=== PATIENT | female | born 1970 | race Hispanic/Latino ===

== ENCOUNTER 2018-11-04 19:51 | Emergency (ER) | payer OTHER ==
[2018-11-04] MEDS ORDERED: IBUPROFEN 800 MG TAB ONE (20:10)
== END 2018-11-04 23:09 | disposition home or self-care (01) ==
LOC: EDH 19:51
DX: S93.692A Other sprain of left foot, initial encounter (principal); J45.909 Unspecified asthma, uncomplicated; E11.9 Type 2 diabetes mellitus without complications; Z98.890 Other specified postprocedural states; Z98.51 Tubal ligation status; Z88.6 Allergy status to analgesic agent; X50.0XXA Overexertion from strenuous movement or load, initial encounter; Y93.89 Activity, other specified; Y92.69 Other specified industrial and construction area as the place of occurrence of the external cause; Y99.8 Other external cause status
CPT/HCPCS: 73630; 73700

== ENCOUNTER 2018-12-17 12:35 | Emergency (ER) | payer OTHER ==
[2018-12-17 13:27] LABS: BILIRUBIN,URINE NEGATIVE (NEGATIVE); GLUCOSE, URINE (UA) >=1000 mg/dL (NEGATIVE); KETONES,URINE NEGATIVE (NEGATIVE); LEUKOCYTE ESTERASE ,URINE TRACE (NEGATIVE); NITRATE,URINE POSITIVE (NEGATIVE); OCCULT BLOOD,URINE LARGE (NEGATIVE); PH,URINE 6.5 (5.0-8.0); PROTEIN,URINE 100 mg/dL (NEGATIVE)
[2018-12-17 13:28] LABS: APPEARANCE,URINE CLOUDY (CLEAR); COLOR,URINE Red (YELLOW)
[2018-12-17 13:36] LABS: HCG,QUAL RESULT NEGATIVE (NEGATIVE)
[2018-12-17 13:38] LABS: BACTERIA,URINE Rare /HPF (None Seen); RBC,URINE TNTC /HPF (0-1); SQUAMOUS EPITHELIAL CELL,UR Rare /HPF (0-2); WBC,URINE 0-1 /HPF (0-1)
[2018-12-17 13:47] LABS: BASOPHILS % (AUTO) 1.1 % (0.0-5.0); EOSINOPHILS % (AUTO) 1.2 % (0.0-8.0); HEMATOCRIT 40.5 % (36-48); LYMPHOCYTES % (AUTO) 27.2 % (21.0-51.0); MEAN CORPUSCULAR HEMOGLOBIN 28.9 pg (27.0-33.0); MEAN CORPUSCULAR HGB CONC 33.8 g/dL (32.0-36.0); MEAN CORPUSCULAR VOLUME 85.4 fL (79-99); MONOCYTES % (AUTO) 5.1 % (3.0-13.0); NEUTROPHILS % (AUTO) 65.4 % (40.0-77.0); NUCLEATED RED BLOOD CELLS 0.2 % (0.0-0.19); PLATELET COUNT (AUTO) 229 K/uL (130-400); RED BLOOD CELL COUNT(AUTO) 4.75 MIL/uL (4.00-5.50); RED CELL DISTRIBUTION WIDTH 14.3 % (11.0-15.5); WHITE BLOOD COUNT (AUTO) 6.7 K/uL (4.8-10.8)
== END 2018-12-17 18:10 | disposition home or self-care (01) ==
LOC: EDH 12:35
DX: N95.0 Postmenopausal bleeding (principal); R93.89 Abnormal findings on diagnostic imaging of other specified body structures; I10 Essential (primary) hypertension; E11.9 Type 2 diabetes mellitus without complications; J45.909 Unspecified asthma, uncomplicated; Z88.5 Allergy status to narcotic agent; Z88.2 Allergy status to sulfonamides; Z98.51 Tubal ligation status; Z90.89 Acquired absence of other organs
CPT/HCPCS: 36415; 76856; 81001; 81025; 85025

== ENCOUNTER 2019-01-30 11:11 | Inpatient (IN) | payer OTHER | END 2019-02-01 17:25 | disposition home or self-care (01) | LOC: WSH 01-31 09:01 → DAHIP 11:11 → WSH 17:00 | PROC: 0UT90ZZ Resection of Uterus, Open Approach (ICD-10-PCS; principal; 2019-01-30 14:00) | PROC: 0UT20ZZ Resection of Bilateral Ovaries, Open Approach (ICD-10-PCS; 2019-01-30 14:00) | PROC: 0UT70ZZ Resection of Bilateral Fallopian Tubes, Open Approach (ICD-10-PCS; 2019-01-30 14:00) | DX: D25.9 Leiomyoma of uterus, unspecified (principal); N95.0 Postmenopausal bleeding ==

== ENCOUNTER 2019-10-06 16:34 | Emergency (ER) | payer OTHER ==
[~2019-10-06 16:34] MED LIST: GLIP1TAB6 PO; LISI1TAB28 PO; TRAM50TA4 PO
[2019-10-06] MEDS ORDERED: IBUPROFEN 600 MG TABLET ONE (17:10)
[2019-10-06] MEDS ORDERED: ONDANSETRON ODT 4 MG TAB ONE (17:10)
[2019-10-06] MEDS ORDERED: IPRATROPIUM/ALBUTEROL SULFATE 3 ML SOLUTION IH ONE (17:19)
[2019-10-06 17:45] LABS: RAPID GROUP A STREP NEGATIVE (NEGATIVE)
== END 2019-10-06 18:56 | disposition home or self-care (01) ==
LOC: EDH 16:34
DX: J10.1 Influenza due to other identified influenza virus with other respiratory manifestations (principal); J45.909 Unspecified asthma, uncomplicated; E11.9 Type 2 diabetes mellitus without complications; I10 Essential (primary) hypertension; Z88.6 Allergy status to analgesic agent
CPT/HCPCS: 71046; 87804; 87880; 94640

== ENCOUNTER 2019-12-12 16:09 | Emergency (ER) | payer OTHER ==
[2019-12-12] MEDS ORDERED: GUAIFENESIN SUGAR-FREE 100 MG/5 ML UDCUP ONE (16:53)
[2019-12-12] MEDS ORDERED: ACETAMINOPHEN EXTRA STRENGTH 500 MG TABLET ONE (16:54)
[2019-12-12] MEDS ORDERED: BENZONATATE 100 MG CAPSULE PO ONE (16:54)
[2019-12-12] MEDS ORDERED: METHYLPREDNISOLONE SOD SUCC 125MG/2ML VIAL ONE (16:54)
[2019-12-12] MEDS ORDERED: ONDANSETRON ODT 4 MG TAB ONE (16:55)
[2019-12-12] MEDS ORDERED: ZOSYN 3.375GM+NS 50ML 50 ML IV ONE (17:43)
[2019-12-12 17:52] LABS: BASOPHILS % (AUTO) 0.2 % (0.0-5.0); HEMATOCRIT 42.7 % (36-48); MEAN CORPUSCULAR HGB CONC 34.7 g/dL (32.0-36.0); MEAN CORPUSCULAR VOLUME 83.7 fL (79-99); MONOCYTES % (AUTO) 5.9 % (3.0-13.0); NEUTROPHILS % (AUTO) 68.7 % (40.0-77.0); PLATELET COUNT (AUTO) 136 K/uL (130-400); RED CELL DISTRIBUTION WIDTH 12.3 % (11.0-15.5); WHITE BLOOD COUNT (AUTO) 4.7 K/uL (4.8-10.8)
[2019-12-12 18:17] LABS: POTASSIUM 3.6 mmol/L (3.5-5.1)
[2019-12-12 18:22] LABS: ALBUMIN 3.4 g/dL (3.5-5.0); BILIRUBIN,TOTAL 0.6 mg/dL (0.2-1.0); TOTAL PROTEIN, SERUM 7.6 g/dL (6.0-8.3)
== END 2019-12-12 19:47 | disposition home or self-care (01) ==
LOC: EDH 16:09
DX: J18.9 Pneumonia, unspecified organism (principal); Z20.828 Contact with and (suspected) exposure to other viral communicable diseases; R11.2 Nausea with vomiting, unspecified; R19.7 Diarrhea, unspecified; I10 Essential (primary) hypertension; E11.9 Type 2 diabetes mellitus without complications; J45.909 Unspecified asthma, uncomplicated; Z88.6 Allergy status to analgesic agent; Z90.710 Acquired absence of both cervix and uterus; Z98.51 Tubal ligation status
CPT/HCPCS: 36415; 71046; 80053; 82550; 83605; 85025; 87040 ×2; 87486; 87581; 87633; 87635; 87798; 87804 ×2; 87807; 93005; 96365; 96372; 99285; J2543; J2930

== ENCOUNTER 2019-12-15 06:05 | Inpatient (IN) | payer OTHER ==
[~2019-12-15] VITALS: Ht 152.4 cm; Wt 86.8 kg
[2019-12-15] VITALS (9 sets, daily range): BP systolic 135–159; BP diastolic 49–84
[2019-12-15 07:07] LABS: BASOPHILS % (AUTO) 0.2 % (0.0-5.0); HEMATOCRIT 43.6 % (36-48); LYMPHOCYTES % (AUTO) 14.7 % (21.0-51.0); MEAN CORPUSCULAR HEMOGLOBIN 29.5 pg (27.0-33.0); MEAN CORPUSCULAR HGB CONC 35.1 g/dL (32.0-36.0); MEAN CORPUSCULAR VOLUME 84.2 fL (79-99); MONOCYTES % (AUTO) 2.8 % (3.0-13.0); NEUTROPHILS % (AUTO) 82.1 % (40.0-77.0); PLATELET COUNT (AUTO) 187 K/uL (130-400); RED BLOOD CELL COUNT(AUTO) 5.18 MIL/uL (4.00-5.50); RED CELL DISTRIBUTION WIDTH 12.5 % (11.0-15.5); WHITE BLOOD COUNT (AUTO) 9.5 K/uL (4.8-10.8)
[2019-12-15 07:22] LABS: CREATININE 0.9 mg/dL (0.5-1.5); POTASSIUM 3.5 mmol/L (3.5-5.1)
[2019-12-15] MEDS ORDERED: ZOSYN 3.375GM+NS 50ML 50 ML IV ONE (07:25)
[2019-12-15] MEDS ORDERED: ALBUTEROL INHALER 90MCG/INH IH ONE (07:25)
[2019-12-15 07:28] LABS: ALBUMIN 3.1 g/dL (3.5-5.0); BILIRUBIN,TOTAL 0.9 mg/dL (0.2-1.0); TOTAL PROTEIN, SERUM 7.1 g/dL (6.0-8.3)
[2019-12-15] MEDS ORDERED: SODIUM CHLORIDE 0.9% 1000ML 1,000 ML IV ONE ×2 (07:30→08:58)
[2019-12-15] MEDS ORDERED: VANCOMYCIN PROTOCOL PER PHARMACY IV SCH (08:30)
[2019-12-15] MEDS ORDERED: VANCOMYCIN 1GM+NS 250ML 250 ML IV ONE (08:37)
[2019-12-15] MEDS ORDERED: PHARMACY COMMUNICATION MISC SCH ×2 (13:45→14:30)
[2019-12-15] MEDS ORDERED: POTASSIUM CHLORIDE 10MEQ/100ML 100 ML IV PRN (13:45)
[2019-12-15] MEDS ORDERED: POTASSIUM CHLORIDE 20 MEQ ERTAB PO PRN (13:45)
[2019-12-15] MEDS ORDERED: AZITHROMYCIN 500MG+NS 250ML 250 ML IV ONE (14:09)
[2019-12-15] MEDS: AZITHROMYCIN 500MG+NS 250ML 250 ML IV SCH (15:00)
[2019-12-15 15:19] LABS: ABG BASE EXCESS -1.1 mmol/L (-2.0-3.0); ABG HCO3 21.3 mmol/L (21.0-28.0); ABG OXYGEN SATURATION 89.8 % (95.0-99.0); ABG PCO2 30 mmHg (32-45)
[2019-12-15] MEDS: ZOSYN 3.375GM+NS 50ML 50 ML IV SCH ×2 (15:21→22:08)
[2019-12-15] MEDS: GUAIFENESIN-DM 200/20 MG 10 ML PO SCH ×3 (15:21→22:08)
[2019-12-15] MEDS: HYDROXYCHLOROQUINE SULFATE 200 MG TAB PO SCH (15:22)
[2019-12-15] MEDS: BENZONATATE 100 MG CAPSULE PO SCH ×2 (15:22→22:08)
[2019-12-15] MEDS: ACETAMINOPHEN 325 MG TAB PO PRN (15:22)
[2019-12-15] MEDS ORDERED: COMPOUND IV REFRIGERATED 1 EACH IVSOLN MISC PRN (15:30)
[2019-12-15] MEDS ORDERED: PRED20TA3 PO (16:52)
[2019-12-15] MEDS ORDERED: AZIT250T9 PO (16:52)
[2019-12-15] MEDS ORDERED: LISI1TAB28 PO (16:52)
[2019-12-15] MEDS ORDERED: GLIP1TAB6 PO (16:52)
[2019-12-15] MEDS ORDERED: ONDA4TAB4 PO (16:52)
[2019-12-15] MEDS: IPRATROPIUM/ALBUTEROL SULFATE 3 ML SOLUTION IH SCH (18:00)
--- NOTE | 2019-12-15 19:15 | NUR ---
DR CIERA VANG AT BEDSIDE
--- NOTE | 2019-12-15 20:00 | NUR ---
ASSESSMENT PT RESTING IN BED, SOB NOTED, TACHYPNEA NOTED. PT DENIES ANY PAIN. PT AAOX3, PERRLA, ABLE TO FOLLOW COMMANDS, COOPERATIVE BUT TEARFUL, AND ANXIOUS. PT ENCOURAGED TO EXPRESS FEELINGS. PT ORIENTED TO CALLBELL, ROOM. BEDSIDE MONITOR ADJUSTED PER PT PARAMETERS. HI-FLOW O2 REMAINS INTACT. ASSESSMENT COMPLETED, PLEASE SEE FLOW SHEET.
[2019-12-15] MEDS: OSELTAMIVIR PHOSPHATE 75 MG CAP PO SCH (20:02)
[2019-12-15] MEDS: METHYLPREDNISOLONE SOD SUCC 40MG/ML 1ML IVP SCH (20:03)
[2019-12-15] MEDS: VANCOMYCIN 1.25 GM in SODIUM CHLORIDE 0.9% 250 ML IV SCH (20:03)
--- NOTE | 2019-12-15 22:00 | NUR ---
FAMILY PT DAUGHTER UZIEL CALLED. PT WAS ASLEEP. I INFORMED MISS TRIPLETT I WOULD HAVE THE PT CHARGE HER PHONE SO SHE COULD/CONTACT/SPEAK WITH HER
[2019-12-15] MEDS: INSULIN HUMULIN R 100 UNIT/ML 3ML SQ SCH (22:16)
[2019-12-16] VITALS (22 sets, daily range): BP systolic 98–153; BP diastolic 50–86
[2019-12-16] MEDS: IPRATROPIUM/ALBUTEROL SULFATE 3 ML SOLUTION IH SCH
--- NOTE | 2019-12-16 | NUR ---
ASSESSMENT PT RESTING IN BED, REMAINS SOB AND TACHYPNEIC. PT DENIES ANY PAIN. PT AROUSES EASILY, RESPONDS APPROPRIATELY, COOPERATIVE AND CALM AT PRESENT. HI-FLOW O2 REMAINS INTACT. ASSESSMENT COMPLETED, PLEASE SEE FLOW SHEET.
[2019-12-16] MEDS: HYDROXYCHLOROQUINE SULFATE 200 MG TAB PO SCH ×2 (02:00→14:00)
[2019-12-16] MEDS: GUAIFENESIN-DM 200/20 MG 10 ML PO SCH ×6 (02:01→22:49)
[2019-12-16 04:29] LABS: ABG BASE EXCESS -0.7 mmol/L (-2.0-3.0); ABG HCO3 23.7 mmol/L (21.0-28.0); ABG OXYGEN SATURATION 95.7 % (95.0-99.0); ABG PCO2 38 mmHg (32-45)
[2019-12-16] MEDS: BENZONATATE 100 MG CAPSULE PO SCH ×3 (05:33→22:50)
[2019-12-16] MEDS: ZOSYN 3.375GM+NS 50ML 50 ML IV SCH ×3 (05:34→22:50)
[2019-12-16 05:57] LABS: HEMATOCRIT 42.9 % (36-48); MEAN CORPUSCULAR HGB CONC 34.5 g/dL (32.0-36.0); MEAN CORPUSCULAR VOLUME 84.1 fL (79-99); PLATELET COUNT (AUTO) 175 K/uL (130-400); RED CELL DISTRIBUTION WIDTH 12.4 % (11.0-15.5); WHITE BLOOD COUNT (AUTO) 7.4 K/uL (4.8-10.8)
[2019-12-16] MEDS: INSULIN HUMULIN R 100 UNIT/ML 3ML SQ SCH ×4 (05:57→20:32)
[2019-12-16 06:27] LABS: ALBUMIN 2.7 g/dL (3.5-5.0); BILIRUBIN,TOTAL 0.9 mg/dL (0.2-1.0); CREATININE 0.8 mg/dL (0.5-1.5); MAGNESIUM 1.9 mg/dL (1.80-2.40); PHOSPHORUS 3.4 mg/dL (2.5-4.9); POTASSIUM 3.5 mmol/L (3.5-5.1); TOTAL PROTEIN, SERUM 6.9 g/dL (6.0-8.3)
[2019-12-16 07:06] LABS: B-TYPE NATRIURETIC PEPTIDE 36 pg/mL (0-100)
[2019-12-16] MEDS: AZITHROMYCIN 500MG+NS 250ML 250 ML IV SCH (10:08)
[2019-12-16] MEDS: VANCOMYCIN 1.25 GM in SODIUM CHLORIDE 0.9% 250 ML IV SCH ×2 (10:09→20:29)
[2019-12-16] MEDS: METHYLPREDNISOLONE SOD SUCC 40MG/ML 1ML IVP SCH ×2 (10:09→20:30)
[2019-12-16] MEDS: OSELTAMIVIR PHOSPHATE 75 MG CAP PO SCH ×2 (10:09→20:30)
[2019-12-16] MEDS: ENOXAPARIN SODIUM 40 MG/0.4 ML SYRINGE SQ SCH (10:10)
[2019-12-16] MEDS ORDERED: HYDROXYCHLOROQUINE SULFATE 200 MG TAB PO SCH ×2 (13:33→14:00)
[2019-12-16] MEDS: ACETAMINOPHEN 325 MG TAB PO PRN ×2 (14:11→23:38)
--- NOTE | 2019-12-16 15:14 | NUR ---
INITIAL SW spoke to patient. Patient lives with spouse, Abdoul Diaz, [phone]. No home services or DME. 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 She is able to complete ADL's and drives. PCP is Dr. Donavon Quinn. Pharmacy is [facility] located in [place]. DCP is home. Addendum: 12/16/19 at 1520 by MALCOLM LAWLER SS Amended: Links added.
--- NOTE | 2019-12-16 20:00 | NUR ---
ASSESSMENT PT RESTING IN BED, SOB NOTED, TACHYPNEA NOTED. PT DENIES ANY PAIN. PT AAOX3, PERRLA, ABLE TO FOLLOW COMMANDS, COOPERATIVE BUT TEARFUL, AND ANXIOUS. PT ENCOURAGED TO EXPRESS FEELINGS. PT ORIENTED TO CALLBELL, ROOM. BEDSIDE MONITOR ADJUSTED PER PT PARAMETERS. 100%% NRM INTACT. ASSESSMENT COMPLETED, PLEASE SEE FLOW SHEET.
--- NOTE | 2019-12-16 23:30 | NUR ---
ASSESSMENT PT RESTING IN BED, SOB NOTED, TACHYPNEA NOTED. PT C/O PAT COUGHING, SEE E.MAR. PT AAOX3, PERRLA, ABLE TO FOLLOW COMMANDS, COOPERATIVE BUT TEARFUL, AND ANXIOUS. PT ENCOURAGED TO EXPRESS FEELINGS. EMOTIONAL SUPPORT PROVIDED. TITRATING HI-FLOW O2 FOR SPO2, RESP AND SPO2. ASSESSMENT COMPLETED, PLEASE SEE FLOW SHEET.
[2019-12-17] VITALS (27 sets, daily range): BP systolic 87–158; BP diastolic 39–87
[2019-12-17] MEDS: GUAIFENESIN-DM 200/20 MG 10 ML PO SCH ×6 (01:30→21:23)
--- NOTE | 2019-12-17 03:00 | NUR ---
ASSESSMENT PT RESTING IN BED, SOB NOTED, TACHYPNEA NOTED. PT AROUSES EASILY AND RESPONDS APPROPRIATELY . ABLE TO FOLLOW COMMANDS, COOPERATIVE. ASSESSMENT COMPLETED, PLEASE SEE FLOW SHEET.
[2019-12-17 03:44] LABS: ABG BASE EXCESS -2.6 mmol/L (-2.0-3.0); ABG HCO3 21.4 mmol/L (21.0-28.0); ABG OXYGEN SATURATION 90.8 % (95.0-99.0); ABG PCO2 35 mmHg (32-45)
[2019-12-17 04:47] LABS: MEAN CORPUSCULAR HEMOGLOBIN 29.5 pg (27.0-33.0); MEAN CORPUSCULAR HGB CONC 34.9 g/dL (32.0-36.0); MEAN CORPUSCULAR VOLUME 84.5 fL (79-99); PLATELET COUNT (AUTO) 217 K/uL (130-400); RED BLOOD CELL COUNT(AUTO) 5.09 MIL/uL (4.00-5.50); RED CELL DISTRIBUTION WIDTH 12.4 % (11.0-15.5); WHITE BLOOD COUNT (AUTO) 11.2 K/uL (4.8-10.8)
[2019-12-17 04:59] LABS: INR 0.92 (0.85-1.15); PARTIAL THROMBOPLASTIN TIME 23.1 SEC (26.3-35.5)
[2019-12-17 05:25] LABS: ALBUMIN 2.5 g/dL (3.5-5.0); BILIRUBIN,TOTAL 1.1 mg/dL (0.2-1.0); CREATININE 1.4 mg/dL (0.5-1.5); MAGNESIUM 2.9 mg/dL (1.80-2.40); PHOSPHORUS 2.7 mg/dL (2.5-4.9); POTASSIUM 3.9 mmol/L (3.5-5.1)
[2019-12-17] MEDS: ZOSYN 3.375GM+NS 50ML 50 ML IV SCH ×3 (05:40→23:15)
[2019-12-17] MEDS: BENZONATATE 100 MG CAPSULE PO SCH ×3 (05:40→21:25)
[2019-12-17] MEDS: INSULIN HUMULIN R 100 UNIT/ML 3ML SQ SCH ×3 (05:53→17:35)
[2019-12-17] MEDS: METHYLPREDNISOLONE SOD SUCC 40MG/ML 1ML IVP SCH (09:00)
[2019-12-17] MEDS: OSELTAMIVIR PHOSPHATE 75 MG CAP PO SCH ×2 (10:59→21:23)
[2019-12-17] MEDS: ENOXAPARIN SODIUM 40 MG/0.4 ML SYRINGE SQ SCH (11:00)
[2019-12-17] MEDS: VANCOMYCIN 1.25 GM in SODIUM CHLORIDE 0.9% 250 ML IV SCH ×2 (11:02→21:24)
[2019-12-17] MEDS: AZITHROMYCIN 500MG+NS 250ML 250 ML IV SCH (11:03)
[2019-12-17] MEDS ORDERED: MIDAZOLAM HCL 1 MG/ML 2ML VIAL IVP SCH (12:50)
[2019-12-17] MEDS ORDERED: SODIUM CHLORIDE 0.9% IV STA (12:50)
[2019-12-17] MEDS ORDERED: FENTANYL CITRATE PF 50 MCG/1 ML 2ML VIAL IVP SCH ×2 (12:50→15:00)
[2019-12-17] MEDS ORDERED: ROCURONIUM BROMIDE IV STA (12:50)
[2019-12-17] MEDS ORDERED: FENTANYL CITRATE PF 0.05 MG/ML 1,000 MCG in SODIUM CHLORIDE 0.9% 100 ML IVPB STA (12:55)
[2019-12-17] MEDS ORDERED: ROCURONIUM BROMIDE 10MG/1ML 5ML VL IV SCH (13:15)
[2019-12-17] MEDS ORDERED: FENTANYL 1000MCG+NS 100ML 100 ML ONE (13:25)
--- NOTE | 2019-12-17 13:30 | NUR ---
Patient intubated by Dr Acevedo at this time. No complications. patient is sedated and tolerating ventilator well, will continue to monitor.
[2019-12-17] MEDS ORDERED: PROPOFOL 1000 MG/100 ML IV PRN (13:45)
--- NOTE | 2019-12-17 14:00 | NUR ---
The daughter who is her medical power of insurance attorney has been notified of patient's status and intubation. Daughter states understanding and we will continue to keep her updated as needed.
--- NOTE | 2019-12-17 14:55 | NUR ---
DIRECTIVES SW contacted by PAIGE Flaherty regarding pt's request for directives prior to intubation. Pt currently in isolation and SW spoke to her by phone. Pt states she wanted to have her daughter Jamila Diaz be MPOA. Sw completed forms and ATTILA Larsonissa had pt sign form and Sw witnessed thru the window. Copy was made by pt's nurse for chart and pt was given the original. CMD was present at time that MPOA was signed as well.
[2019-12-17] MEDS: HYDROXYCHLOROQUINE SULFATE 200 MG TAB PO SCH (15:10)
[2019-12-17 15:15] LABS: ABG BASE EXCESS -3.6 mmol/L (-2.0-3.0); ABG HCO3 22.7 mmol/L (21.0-28.0); ABG OXYGEN SATURATION 91.5 % (95.0-99.0); ABG PCO2 45 mmHg (32-45)
--- NOTE | 2019-12-17 15:41 | NUR ---
TUBE FEEDING RECOMMENDATIONS Dx PNA. Pt with possible COVID-19, pending results. recommending intubation, pt refused, will continue high O2 flow. Labs reviewed (BG 204, WBC 11, ALB 2.5). Meds reviewed. Skin is intact. RD recommends to start tube feeding using Pivot Start full strength at 15ml/hr Increase rate as tolerated by 5mls every 5hrs Goal rate is 30ml/hr Flush with 265mls Q6hrs Monitor residuals, labs, BM RD will continue to monitor and follow up, thank you. Addendum: 12/17/19 at [address] Amended: Links added.
[2019-12-17 16:01] LABS: INR 0.98 (0.85-1.15); PARTIAL THROMBOPLASTIN TIME 25.7 SEC (26.3-35.5); PROTHROMBIN TIME 10.6 SEC (9.6-11.6)
[2019-12-17] MEDS: ARTIFICIAL TEARS 3.5 GM OINTMENT OU SCH ×2 (17:18→21:25)
[2019-12-17] MEDS: MIDAZOLAM HCL 50 MG in SODIUM CHLORIDE 0.9% 50 ML IV SCH ×2 (17:27→20:43)
[2019-12-17] MEDS: PROPOFOL 1000 MG/100 ML 100 ML IV SCH ×2 (18:41→20:45)
[2019-12-17] MEDS: CISATRACURIUM BESYLATE 100 MG in SODIUM CHLORIDE 0.9% 100 ML IV SCH (18:54)
[2019-12-17] MEDS: FENTANYL 1000MCG+NS 100ML 100 ML IV SCH (20:00)
[2019-12-17] MEDS ORDERED: MIDAZOLAM 50MG-0.9% NS 50ML 50 ML BAG IV SCH (20:15)
[2019-12-17] MEDS: CHLORHEXIDINE GLUCONATE 473 ML MOUTHWASH MM SCH (21:24)
[2019-12-17 22:49] LABS: ABG BASE EXCESS -1.4 mmol/L (-2.0-3.0); ABG OXYGEN SATURATION 98.9 % (95.0-99.0); ABG PCO2 48 mmHg (32-45)
[2019-12-18] VITALS (44 sets, daily range): BP systolic 91–130; BP diastolic 53–69
[2019-12-18] MEDS: INSULIN HUMULIN R 100 UNIT/ML 3ML SQ SCH ×4 (00:10→18:39)
[2019-12-18] MEDS: PROPOFOL 1000 MG/100 ML 100 ML IV SCH ×4 (00:41→23:14)
[2019-12-18] MEDS: ARTIFICIAL TEARS 3.5 GM OINTMENT OU SCH ×4 (00:46→19:45)
[2019-12-18] MEDS: GUAIFENESIN-DM 200/20 MG 10 ML PO SCH ×6 (00:46→21:28)
[2019-12-18] MEDS ORDERED: PHARMACY COMMUNICATION MISC SCH (01:45)
[2019-12-18] MEDS: MIDAZOLAM 50MG-0.9% NS 50ML 50 ML IV SCH ×3 (01:53→23:13)
[2019-12-18] MEDS: FENTANYL 1000MCG+NS 100ML 100 ML IV SCH ×3 (01:53→16:17)
[2019-12-18] MEDS: BENZONATATE 100 MG CAPSULE PO SCH ×2 (03:17→12:58)
[2019-12-18 03:52] LABS: ABG BASE EXCESS -4.2 mmol/L (-2.0-3.0); ABG HCO3 24.5 mmol/L (21.0-28.0); ABG OXYGEN SATURATION 98.5 % (95.0-99.0); ABG PCO2 60 mmHg (32-45)
[2019-12-18 04:58] LABS: HEMATOCRIT 42.3 % (36-48); MEAN CORPUSCULAR HGB CONC 32.6 g/dL (32.0-36.0); MEAN CORPUSCULAR VOLUME 88.9 fL (79-99); PLATELET COUNT (AUTO) 223 K/uL (130-400); RED BLOOD CELL COUNT(AUTO) 4.76 MIL/uL (4.00-5.50); RED CELL DISTRIBUTION WIDTH 13.2 % (11.0-15.5); WHITE BLOOD COUNT (AUTO) 11.3 K/uL (4.8-10.8)
[2019-12-18 05:11] LABS: BAND NEUTROPHILS % (MANUAL) 4 % (0-2); LYMPHOCYTES % (MANUAL) 10 % (22-44); MAN.DIFF COMMENT-IMPRESSION MANUAL DIFFERENTIAL; PLATELET MORPHOLOGY COMMENT ADEQUATE; REACTIVE LYMPHOCYTES 1 % (0-0); SEGMENTED NEUTROPHILS % 85 % (40-70)
[2019-12-18 05:14] LABS: INR 0.93 (0.85-1.15); PARTIAL THROMBOPLASTIN TIME 24.9 SEC (26.3-35.5); PROTHROMBIN TIME 10.1 SEC (9.6-11.6)
[2019-12-18 05:26] LABS: ALBUMIN 2.4 g/dL (3.5-5.0); BILIRUBIN,TOTAL 0.5 mg/dL (0.2-1.0); MAGNESIUM 2.5 mg/dL (1.80-2.40); PHOSPHORUS 4.4 mg/dL (2.5-4.9); TOTAL PROTEIN, SERUM 6.7 g/dL (6.0-8.3)
[2019-12-18] MEDS: ZOSYN 3.375GM+NS 50ML 50 ML IV SCH (05:37)
[2019-12-18] MEDS: CISATRACURIUM BESYLATE 100 MG in SODIUM CHLORIDE 0.9% 100 ML IV SCH (07:16)
[2019-12-18] MEDS: INSULIN GLARGINE 100 UNITS/ML 10 ML VIAL SQ SCH ×2 (07:30→21:00)
[2019-12-18 08:08] LABS: ABG BASE EXCESS -2.5 mmol/L (-2.0-3.0); ABG HCO3 22.5 mmol/L (21.0-28.0); ABG OXYGEN SATURATION 98.5 % (95.0-99.0); ABG PCO2 40 mmHg (32-45)
[2019-12-18] MEDS: OSELTAMIVIR PHOSPHATE 75 MG CAP PO SCH ×2 (08:59→21:33)
[2019-12-18] MEDS: CHLORHEXIDINE GLUCONATE 473 ML MOUTHWASH MM SCH ×2 (09:00→21:34)
[2019-12-18] MEDS: ENOXAPARIN SODIUM 40 MG/0.4 ML SYRINGE SQ SCH (09:00)
[2019-12-18] MEDS: AZITHROMYCIN 500MG+NS 250ML 250 ML IV SCH (09:01)
[2019-12-18] MEDS: VANCOMYCIN 1.25 GM in SODIUM CHLORIDE 0.9% 250 ML IV SCH ×2 (09:01→21:34)
--- NOTE | 2019-12-18 09:51 | NUR ---
RD FOLLOW UP Pending COVID-19 results. Worsening resp. failure, S/P placement of mechanical ventilation. Labs and meds reviewed. Skin is intact. Pt started on Pivot and is tolerating well. LBM: 12/16. Increase TF rate by 5mls every 5 hrsas tolerated Goal rate is 30ml/hr TF recommendations left in pts chart Monitor residuals, labs, BM RD will continue to monitor and follow up, thank you.
[2019-12-18] MEDS ORDERED: LACTATED RINGERS 1000ML IV SCH (11:15)
[2019-12-18] MEDS: LACTATED RINGERS 1000ML 1,000 ML IV SCH (11:30)
[2019-12-18] MEDS ORDERED: LACTATED RINGERS 1000ML 1,000 ML IV SCH (12:30)
[2019-12-18] MEDS: HYDROXYCHLOROQUINE SULFATE 200 MG TAB PO SCH (13:04)
[2019-12-18] MEDS: MEROPENEM 1 GM VIAL IVP SCH ×2 (13:10→21:33)
[2019-12-18] MEDS ORDERED: NOREPINEPHRINE BITARTRATE 8 MG in DEXTROSE 5%-WATER 250 ML IV PRN (16:15)
[2019-12-18 17:44] LABS: ABG BASE EXCESS -4.5 mmol/L (-2.0-3.0); ABG HCO3 24.4 mmol/L (21.0-28.0); ABG OXYGEN SATURATION 98.1 % (95.0-99.0); ABG PCO2 61 mmHg (32-45)
[2019-12-19] VITALS (44 sets, daily range): BP systolic 86–163; BP diastolic 46–81
[2019-12-19 00:13] LABS: ABG BASE EXCESS -1.7 mmol/L (-2.0-3.0); ABG HCO3 26.4 mmol/L (21.0-28.0); ABG OXYGEN SATURATION 97.4 % (95.0-99.0); ABG PCO2 58 mmHg (32-45)
[2019-12-19] MEDS: ARTIFICIAL TEARS 3.5 GM OINTMENT OU SCH ×4 (00:36→21:40)
[2019-12-19] MEDS: LACTATED RINGERS 1000ML 1,000 ML IV SCH (00:36)
[2019-12-19] MEDS: GUAIFENESIN-DM 200/20 MG 10 ML PO SCH ×6 (00:41→21:33)
[2019-12-19] MEDS: CISATRACURIUM BESYLATE 100 MG in SODIUM CHLORIDE 0.9% 100 ML IV SCH ×2 (01:04→17:43)
[2019-12-19] MEDS: PROPOFOL 1000 MG/100 ML 100 ML IV SCH ×4 (03:21→23:57)
[2019-12-19] MEDS: MEROPENEM 1 GM VIAL IVP SCH ×3 (03:41→21:32)
[2019-12-19] MEDS: ACETAMINOPHEN 325 MG TAB PO PRN ×2 (03:42→18:17)
[2019-12-19 04:43] LABS: ABG BASE EXCESS 0.2 mmol/L (-2.0-3.0); ABG HCO3 26.7 mmol/L (21.0-28.0); ABG OXYGEN SATURATION 97.9 % (95.0-99.0); ABG PCO2 50 mmHg (32-45)
[2019-12-19 06:02] LABS: HEMATOCRIT 35.4 % (36-48); MEAN CORPUSCULAR HEMOGLOBIN 30.1 pg (27.0-33.0); MEAN CORPUSCULAR HGB CONC 32.8 g/dL (32.0-36.0); MEAN CORPUSCULAR VOLUME 91.9 fL (79-99); PLATELET COUNT (AUTO) 143 K/uL (130-400); RED BLOOD CELL COUNT(AUTO) 3.85 MIL/uL (4.00-5.50); RED CELL DISTRIBUTION WIDTH 13.4 % (11.0-15.5); WHITE BLOOD COUNT (AUTO) 9.5 K/uL (4.8-10.8)
[2019-12-19 06:28] LABS: ALBUMIN 1.7 g/dL (3.5-5.0); BILIRUBIN,TOTAL 0.5 mg/dL (0.2-1.0); CREATININE 1.1 mg/dL (0.5-1.5); PHOSPHORUS 2.8 mg/dL (2.5-4.9); TOTAL PROTEIN, SERUM 5.9 g/dL (6.0-8.3)
[2019-12-19] MEDS: INSULIN HUMULIN R 100 UNIT/ML 3ML SQ SCH ×4 (06:30→18:25)
[2019-12-19 06:57] LABS: EOSINOPHILS % (MANUAL) 1 % (1-6); LYMPHOCYTES % (MANUAL) 6 % (22-44); MAN.DIFF COMMENT-IMPRESSION MANUAL DIFFERENTIAL; MONOCYTES % (MANUAL) 5 % (2-9); PLATELET MORPHOLOGY COMMENT ADEQUATE; SEGMENTED NEUTROPHILS % 88 % (40-70)
[2019-12-19] MEDS: INSULIN GLARGINE 100 UNITS/ML 10 ML VIAL SQ SCH ×2 (08:07→21:36)
[2019-12-19] MEDS: AZITHROMYCIN 500MG+NS 250ML 250 ML IV SCH (08:21)
[2019-12-19] MEDS: VANCOMYCIN 1.25 GM in SODIUM CHLORIDE 0.9% 250 ML IV SCH ×2 (08:24→21:33)
[2019-12-19] MEDS: OSELTAMIVIR PHOSPHATE 75 MG CAP PO SCH ×2 (08:25→21:33)
[2019-12-19] MEDS: ENOXAPARIN SODIUM 40 MG/0.4 ML SYRINGE SQ SCH (08:27)
--- NOTE | 2019-12-19 09:00 | NUR ---
TOF 12/27
[2019-12-19] MEDS: CHLORHEXIDINE GLUCONATE 473 ML MOUTHWASH MM SCH ×2 (09:55→21:40)
--- NOTE | 2019-12-19 10:22 | NUR ---
UPDATED FAMILY MICHELE ON PTS CONDITION
--- NOTE | 2019-12-19 11:30 | NUR ---
UPDATED UZIEL ON PTS STATUS
--- NOTE | 2019-12-19 11:30 | NUR ---
TOF 12/27
[2019-12-19] MEDS: HYDROXYCHLOROQUINE SULFATE 200 MG TAB PO SCH (13:00)
[2019-12-19] MEDS ORDERED: FUROSEMIDE 10 MG/ML 4ML VIAL IV SCH (13:00)
[2019-12-19] MEDS: FENTANYL 1000MCG+NS 100ML 100 ML IV SCH ×2 (13:54→23:56)
--- NOTE | 2019-12-19 14:00 | NUR ---
TOF 12/27
--- NOTE | 2019-12-19 14:47 | NUR ---
NEW COVID TESTING PERFORMED ON PT
--- NOTE | 2019-12-19 16:00 | NUR ---
TOF 12/27
[2019-12-19] MEDS: MIDAZOLAM 50MG-0.9% NS 50ML 50 ML IV SCH (17:43)
--- NOTE | 2019-12-19 18:00 | NUR ---
TOF 12/27
--- NOTE | 2019-12-19 19:00 | NUR ---
CALLED FOR UPDATE
--- NOTE | 2019-12-19 20:00 | NUR ---
TOF4/4
[2019-12-20] VITALS (24 sets, daily range): BP systolic 93–159; BP diastolic 52–79
--- NOTE | 2019-12-20 | NUR ---
TOF 3/4
[2019-12-20] MEDS: INSULIN HUMULIN R 100 UNIT/ML 3ML SQ SCH ×4 (00:29→18:51)
[2019-12-20] MEDS: IPRATROPIUM/ALBUTEROL SULFATE 3 ML SOLUTION IH SCH ×2 (00:47→18:00)
[2019-12-20] MEDS: ARTIFICIAL TEARS 3.5 GM OINTMENT OU SCH ×4 (01:45→16:57)
[2019-12-20] MEDS: GUAIFENESIN-DM 200/20 MG 10 ML PO SCH ×6 (01:45→21:45)
--- NOTE | 2019-12-20 04:00 | NUR ---
Tof 2/4
[2019-12-20] MEDS: MEROPENEM 1 GM VIAL IVP SCH ×3 (05:56→20:13)
[2019-12-20] MEDS: INSULIN GLARGINE 100 UNITS/ML 10 ML VIAL SQ SCH ×2 (06:52→22:03)
[2019-12-20 06:58] LABS: HEMATOCRIT 32.3 % (36-48); MEAN CORPUSCULAR HEMOGLOBIN 30.9 pg (27.0-33.0); MEAN CORPUSCULAR HGB CONC 34.1 g/dL (32.0-36.0); MEAN CORPUSCULAR VOLUME 90.7 fL (79-99); PLATELET COUNT (AUTO) 141 K/uL (130-400); RED BLOOD CELL COUNT(AUTO) 3.56 MIL/uL (4.00-5.50); RED CELL DISTRIBUTION WIDTH 13.3 % (11.0-15.5); WHITE BLOOD COUNT (AUTO) 10.5 K/uL (4.8-10.8)
[2019-12-20 07:15] LABS: ABG BASE EXCESS 1.1 mmol/L (-2.0-3.0); ABG HCO3 26.5 mmol/L (21.0-28.0); ABG OXYGEN SATURATION 97.4 % (95.0-99.0); ABG PCO2 45 mmHg (32-45)
[2019-12-20] MEDS: CISATRACURIUM BESYLATE 100 MG in SODIUM CHLORIDE 0.9% 100 ML IV SCH (07:19)
[2019-12-20 07:35] LABS: CREATININE 1.1 mg/dL (0.5-1.5); MAGNESIUM 2.2 mg/dL (1.80-2.40); PHOSPHORUS 2.3 mg/dL (2.5-4.9); POTASSIUM 3.8 mmol/L (3.5-5.1)
[2019-12-20] MEDS: AZITHROMYCIN 500MG+NS 250ML 250 ML IV SCH (08:12)
[2019-12-20] MEDS: ENOXAPARIN SODIUM 40 MG/0.4 ML SYRINGE SQ SCH (08:14)
[2019-12-20] MEDS: OSELTAMIVIR PHOSPHATE 75 MG CAP PO SCH (08:14)
[2019-12-20] MEDS: CHLORHEXIDINE GLUCONATE 473 ML MOUTHWASH MM SCH ×2 (08:18→21:54)
[2019-12-20] MEDS: VANCOMYCIN 1.25 GM in SODIUM CHLORIDE 0.9% 250 ML IV SCH ×2 (09:44→20:15)
[2019-12-20] MEDS: MIDAZOLAM 50MG-0.9% NS 50ML 50 ML IV SCH ×2 (11:31→20:21)
[2019-12-20] MEDS: FENTANYL 1000MCG+NS 100ML 100 ML IV SCH ×2 (11:32→20:21)
--- NOTE | 2019-12-20 13:54 | NUR ---
RD FOLLOW UP Pending COVID-19 results. Labs and meds reviewed. Pt is tolerating TF at this time. MD request trickle feeds at this time. Intubated and sedated. Skin intact. RD recommends to continue current TF recommendations Increase rate as tolerated when medically feasible Monitor residuals, labs, BM RD will continue to monitor and follow up, thank you.
[2019-12-20] MEDS: ACETAMINOPHEN 325 MG TAB PO PRN (16:54)
--- NOTE | 2019-12-20 20:00 | NUR ---
tof 2/4
[2019-12-20] MEDS: POLYETHYLENE GLYCOL 3350 17 GM POWD.PACK PO SCH (21:00)
[2019-12-21] VITALS (33 sets, daily range): BP systolic 106–180; BP diastolic 65–115
[2019-12-21] MEDS: IPRATROPIUM/ALBUTEROL SULFATE 3 ML SOLUTION IH SCH
--- NOTE | 2019-12-21 | NUR ---
tof 3/4
[2019-12-21] MEDS: INSULIN HUMULIN R 100 UNIT/ML 3ML SQ SCH ×4 (00:22→18:00)
[2019-12-21] MEDS: CISATRACURIUM BESYLATE 100 MG in SODIUM CHLORIDE 0.9% 100 ML IV SCH ×3 (00:24→21:59)
[2019-12-21] MEDS: GUAIFENESIN-DM 200/20 MG 10 ML PO SCH ×6 (01:45→21:58)
[2019-12-21] MEDS: ARTIFICIAL TEARS 3.5 GM OINTMENT OU SCH ×4 (03:12→18:13)
[2019-12-21] MEDS: MEROPENEM 1 GM VIAL IVP SCH ×3 (03:49→20:25)
[2019-12-21] MEDS: MIDAZOLAM 50MG-0.9% NS 50ML 50 ML IV SCH ×3 (05:08→22:00)
[2019-12-21] MEDS: FENTANYL 1000MCG+NS 100ML 100 ML IV SCH ×3 (05:08→22:00)
[2019-12-21 05:21] LABS: HEMATOCRIT 36.1 % (36-48); MEAN CORPUSCULAR HGB CONC 32.7 g/dL (32.0-36.0); MEAN CORPUSCULAR VOLUME 88.7 fL (79-99); PLATELET COUNT (AUTO) 171 K/uL (130-400); RED BLOOD CELL COUNT(AUTO) 4.07 MIL/uL (4.00-5.50); WHITE BLOOD COUNT (AUTO) 10.1 K/uL (4.8-10.8)
[2019-12-21 05:44] LABS: CREATININE 0.8 mg/dL (0.5-1.5); MAGNESIUM 2.2 mg/dL (1.80-2.40); PHOSPHORUS 2.1 mg/dL (2.5-4.9); POTASSIUM 3.9 mmol/L (3.5-5.1)
--- NOTE | 2019-12-21 06:13 | NUR ---
tof 2/4. here and updated with patient condition,V/S and lab results,patient is positive for Covid 19.No new order.Patient hemodynamically stable,has been off pressor since start of my shift.No desaturation noted upon repositioning.Oral care and endotracheal care rendered.Family has been updated.
[2019-12-21] MEDS: INSULIN GLARGINE 100 UNITS/ML 10 ML VIAL SQ SCH ×2 (06:47→20:28)
[2019-12-21] MEDS: AZITHROMYCIN 500MG+NS 250ML 250 ML IV SCH (08:24)
[2019-12-21] MEDS: VANCOMYCIN 1.25 GM in SODIUM CHLORIDE 0.9% 250 ML IV SCH ×2 (08:25→20:26)
[2019-12-21] MEDS: ENOXAPARIN SODIUM 40 MG/0.4 ML SYRINGE SQ SCH (08:28)
[2019-12-21] MEDS: CHLORHEXIDINE GLUCONATE 473 ML MOUTHWASH MM SCH ×2 (08:29→20:31)
[2019-12-21] MEDS: POLYETHYLENE GLYCOL 3350 17 GM POWD.PACK PO SCH ×2 (08:33→20:26)
[2019-12-21 09:58] LABS: ABG BASE EXCESS 0.9 mmol/L (-2.0-3.0); ABG HCO3 26.3 mmol/L (21.0-28.0); ABG OXYGEN SATURATION 91.8 % (95.0-99.0); ABG PCO2 45 mmHg (32-45)
[2019-12-21] MEDS ORDERED: NEUTRA-PHOS PACKET 1 EACH ONE (12:33)
[2019-12-21] MEDS: NEUTRA-PHOS PACKET 1 EACH PO SCH ×2 (12:36→20:30)
[2019-12-21] MEDS ORDERED: PHARMACY COMMUNICATION MISC SCH (13:30)
[2019-12-21] MEDS: FUROSEMIDE 10 MG/ML 2ML VIAL IV SCH ×2 (14:43→22:54)
[2019-12-22] VITALS (36 sets, daily range): BP systolic 105–181; BP diastolic 66–105
[2019-12-22] MEDS: INSULIN HUMULIN R 100 UNIT/ML 3ML SQ SCH ×5 (01:30→23:36)
[2019-12-22] MEDS: ARTIFICIAL TEARS 3.5 GM OINTMENT OU SCH ×4 (01:31→21:33)
[2019-12-22] MEDS: GUAIFENESIN-DM 200/20 MG 10 ML PO SCH ×6 (01:31→21:36)
[2019-12-22] MEDS: MEROPENEM 1 GM VIAL IVP SCH ×3 (04:08→21:32)
[2019-12-22] MEDS: FENTANYL 1000MCG+NS 100ML 100 ML IV SCH ×3 (05:47→21:40)
[2019-12-22] MEDS: MIDAZOLAM 50MG-0.9% NS 50ML 50 ML IV SCH ×3 (05:47→21:40)
[2019-12-22] MEDS: CISATRACURIUM BESYLATE 100 MG in SODIUM CHLORIDE 0.9% 100 ML IV SCH ×3 (05:48→21:41)
[2019-12-22 06:35] LABS: HEMATOCRIT 33.7 % (36-48); MEAN CORPUSCULAR HEMOGLOBIN 29.8 pg (27.0-33.0); MEAN CORPUSCULAR HGB CONC 33.5 g/dL (32.0-36.0); MEAN CORPUSCULAR VOLUME 88.9 fL (79-99); PLATELET COUNT (AUTO) 165 K/uL (130-400); RED BLOOD CELL COUNT(AUTO) 3.79 MIL/uL (4.00-5.50); RED CELL DISTRIBUTION WIDTH 13.1 % (11.0-15.5); WHITE BLOOD COUNT (AUTO) 8.6 K/uL (4.8-10.8)
[2019-12-22] MEDS: FUROSEMIDE 10 MG/ML 2ML VIAL IV SCH ×2 (06:44→11:55)
[2019-12-22] MEDS: INSULIN GLARGINE 100 UNITS/ML 10 ML VIAL SQ SCH ×3 (06:46→21:48)
[2019-12-22 06:50] LABS: CREATININE 0.8 mg/dL (0.5-1.5); MAGNESIUM 1.9 mg/dL (1.80-2.40); PHOSPHORUS 2.5 mg/dL (2.5-4.9); POTASSIUM 3.2 mmol/L (3.5-5.1)
[2019-12-22] MEDS ORDERED: CALCIUM GLUCONATE 1 GM in SODIUM CHLORIDE 0.9% 50 ML IV SCH (07:45)
[2019-12-22] MEDS ORDERED: CALCIUM GLUCONATE 1 GM/10 ML VIAL IV ONE (08:00)
[2019-12-22] MEDS: POTASSIUM CHLORIDE 10% ELIXIR 20 MEQ/15 ML UDCUP PO PRN ×5 (08:22→23:33)
[2019-12-22] MEDS: AZITHROMYCIN 500MG+NS 250ML 250 ML IV SCH (08:23)
[2019-12-22] MEDS: POLYETHYLENE GLYCOL 3350 17 GM POWD.PACK PO SCH ×2 (08:23→21:34)
[2019-12-22] MEDS: NEUTRA-PHOS PACKET 1 EACH PO SCH ×3 (08:27→21:35)
[2019-12-22] MEDS: VANCOMYCIN 1.25 GM in SODIUM CHLORIDE 0.9% 250 ML IV SCH ×2 (08:38→21:34)
[2019-12-22] MEDS: CHLORHEXIDINE GLUCONATE 473 ML MOUTHWASH MM SCH ×2 (08:39→21:34)
[2019-12-22] MEDS: ENOXAPARIN SODIUM 40 MG/0.4 ML SYRINGE SQ SCH (08:41)
[2019-12-22 09:41] LABS: ABG BASE EXCESS 6.5 mmol/L (-2.0-3.0); ABG HCO3 30.6 mmol/L (21.0-28.0); ABG OXYGEN SATURATION 92.6 % (95.0-99.0); ABG PCO2 42 mmHg (32-45)
[2019-12-22] MEDS: FUROSEMIDE 10 MG/ML 4ML VIAL IV SCH (16:59)
[2019-12-22 17:38] LABS: CREATININE 0.8 mg/dL (0.5-1.5); POTASSIUM 3.6 mmol/L (3.5-5.1)
[2019-12-22] MEDS: MAGNESIUM 2GM PREMIX 50ML 50 ML IV PRN (21:40)
[2019-12-23] VITALS (47 sets, daily range): BP systolic 104–168; BP diastolic 65–94
[2019-12-23] MEDS: GUAIFENESIN-DM 200/20 MG 10 ML PO SCH ×6 (01:23→22:23)
[2019-12-23] MEDS: FUROSEMIDE 10 MG/ML 4ML VIAL IV SCH ×3 (01:24→17:29)
[2019-12-23] MEDS: ARTIFICIAL TEARS 3.5 GM OINTMENT OU SCH ×4 (01:24→19:45)
[2019-12-23] MEDS: MEROPENEM 1 GM VIAL IVP SCH ×3 (04:56→20:35)
[2019-12-23] MEDS: FENTANYL 1000MCG+NS 100ML 100 ML IV SCH ×3 (05:03→22:34)
[2019-12-23] MEDS: MIDAZOLAM 50MG-0.9% NS 50ML 50 ML IV SCH ×3 (05:03→22:33)
[2019-12-23 06:26] LABS: HEMATOCRIT 36.2 % (36-48); MEAN CORPUSCULAR HEMOGLOBIN 29.2 pg (27.0-33.0); MEAN CORPUSCULAR HGB CONC 32.9 g/dL (32.0-36.0); MEAN CORPUSCULAR VOLUME 88.9 fL (79-99); PLATELET COUNT (AUTO) 198 K/uL (130-400); RED BLOOD CELL COUNT(AUTO) 4.07 MIL/uL (4.00-5.50); RED CELL DISTRIBUTION WIDTH 13.1 % (11.0-15.5); WHITE BLOOD COUNT (AUTO) 8.1 K/uL (4.8-10.8)
[2019-12-23 06:41] LABS: CREATININE 0.8 mg/dL (0.5-1.5); MAGNESIUM 2.5 mg/dL (1.80-2.40); PHOSPHORUS 3.2 mg/dL (2.5-4.9)
[2019-12-23 06:48] LABS: POTASSIUM 3.9 mmol/L (3.5-5.1)
[2019-12-23 07:26] LABS: ABG BASE EXCESS 7.3 mmol/L (-2.0-3.0); ABG HCO3 31.5 mmol/L (21.0-28.0); ABG OXYGEN SATURATION 94.8 % (95.0-99.0); ABG PCO2 43 mmHg (32-45)
[2019-12-23] MEDS: INSULIN GLARGINE 100 UNITS/ML 10 ML VIAL SQ SCH (07:45)
[2019-12-23] MEDS: INSULIN HUMULIN R 100 UNIT/ML 3ML SQ SCH ×3 (07:46→17:47)
--- NOTE | 2019-12-23 08:00 | NUR ---
TOF 4 OF 4
[2019-12-23] MEDS: AZITHROMYCIN 500MG+NS 250ML 250 ML IV SCH (08:44)
[2019-12-23] MEDS: CHLORHEXIDINE GLUCONATE 473 ML MOUTHWASH MM SCH ×2 (08:45→21:00)
[2019-12-23] MEDS: VANCOMYCIN 1.25 GM in SODIUM CHLORIDE 0.9% 250 ML IV SCH (08:45)
[2019-12-23] MEDS: POLYETHYLENE GLYCOL 3350 17 GM POWD.PACK PO SCH ×2 (08:46→22:19)
[2019-12-23] MEDS: ENOXAPARIN SODIUM 40 MG/0.4 ML SYRINGE SQ SCH (08:47)
[2019-12-23] MEDS: NEUTRA-PHOS PACKET 1 EACH PO SCH ×3 (08:49→22:23)
[2019-12-23] MEDS ORDERED: CALCIUM GLUCONATE 1 GM/10 ML VIAL IV ONE (09:00)
[2019-12-23] MEDS ORDERED: CALCIUM GLUCONATE 1 GM in SODIUM CHLORIDE 0.9% 50 ML IV SCH (09:15)
[2019-12-23] MEDS: CISATRACURIUM BESYLATE 100 MG in SODIUM CHLORIDE 0.9% 100 ML IV SCH ×2 (10:37→19:16)
--- NOTE | 2019-12-23 10:56 | NUR ---
RD FOLLOW UP Positive for COVID. Pt receiving tube feeding using Pivot at 20ml/hr. Tolerating well. Vented and sedated at this time. No BM recorded. Labs and meds reviewed. RD recommends Reglan administration for BM Recommend 500mg Vitamin C BID for immune support Continue Pivot trickle feeds Increase rate as tolerated to goal rate RD will continue to monitor and follow up, thank you.
--- NOTE | 2019-12-23 13:20 | NUR ---
DR SHANNON SHARMA AT BEDSIDE TO ASSESS PATIENT
[2019-12-23] MEDS ORDERED: INSULIN GLARGINE 100 UNITS/ML 10 ML VIAL SQ SCH (21:00)
[2019-12-23 21:08] LABS: POTASSIUM 3.5 mmol/L (3.5-5.1)
[2019-12-23] MEDS: POTASSIUM CHLORIDE 20MEQ/100ML 100 ML IV PRN (22:32)
[2019-12-24] VITALS (71 sets, daily range): BP systolic 105–223; BP diastolic 58–120
[2019-12-24] MEDS: INSULIN HUMULIN R 100 UNIT/ML 3ML SQ SCH ×4 (00:49→17:38)
[2019-12-24] MEDS: VANCOMYCIN 1.25 GM in SODIUM CHLORIDE 0.9% 250 ML IV SCH ×3 (01:00→20:34)
[2019-12-24] MEDS: FUROSEMIDE 10 MG/ML 4ML VIAL IV SCH ×3 (01:00→17:01)
[2019-12-24] MEDS: ARTIFICIAL TEARS 3.5 GM OINTMENT OU SCH ×4 (01:01→19:45)
[2019-12-24] MEDS: GUAIFENESIN-DM 200/20 MG 10 ML PO SCH ×6 (01:01→20:35)
[2019-12-24] MEDS: MEROPENEM 1 GM VIAL IVP SCH ×3 (03:21→20:34)
[2019-12-24] MEDS: CISATRACURIUM BESYLATE 100 MG in SODIUM CHLORIDE 0.9% 100 ML IV SCH ×3 (03:24→22:23)
[2019-12-24 06:43] LABS: HEMATOCRIT 37.1 % (36-48); MEAN CORPUSCULAR HEMOGLOBIN 29.5 pg (27.0-33.0); MEAN CORPUSCULAR HGB CONC 32.9 g/dL (32.0-36.0); MEAN CORPUSCULAR VOLUME 89.8 fL (79-99); PLATELET COUNT (AUTO) 232 K/uL (130-400); RED BLOOD CELL COUNT(AUTO) 4.13 MIL/uL (4.00-5.50); RED CELL DISTRIBUTION WIDTH 13.2 % (11.0-15.5); WHITE BLOOD COUNT (AUTO) 9.3 K/uL (4.8-10.8)
[2019-12-24 06:46] LABS: CREATININE 0.9 mg/dL (0.5-1.5); PHOSPHORUS 3.5 mg/dL (2.5-4.9); POTASSIUM 3.7 mmol/L (3.5-5.1)
[2019-12-24] MEDS: FENTANYL 1000MCG+NS 100ML 100 ML IV SCH ×2 (07:27→18:05)
[2019-12-24] MEDS: AZITHROMYCIN 500MG+NS 250ML 250 ML IV SCH (08:25)
[2019-12-24] MEDS: CHLORHEXIDINE GLUCONATE 473 ML MOUTHWASH MM SCH ×2 (08:25→20:38)
[2019-12-24] MEDS: NEUTRA-PHOS PACKET 1 EACH PO SCH ×3 (08:26→20:35)
[2019-12-24] MEDS: POLYETHYLENE GLYCOL 3350 17 GM POWD.PACK PO SCH ×2 (08:26→20:35)
[2019-12-24] MEDS: ENOXAPARIN SODIUM 40 MG/0.4 ML SYRINGE SQ SCH (08:27)
[2019-12-24] MEDS: INSULIN GLARGINE 100 UNITS/ML 10 ML VIAL SQ SCH ×2 (08:28→20:37)
[2019-12-24] MEDS: POTASSIUM CHLORIDE 20MEQ/100ML 100 ML IV PRN (08:30)
[2019-12-24] MEDS: MIDAZOLAM 50MG-0.9% NS 50ML 50 ML IV SCH ×3 (08:58→21:54)
[2019-12-24 08:59] LABS: ABG BASE EXCESS 9.3 mmol/L (-2.0-3.0); ABG HCO3 33.2 mmol/L (21.0-28.0); ABG OXYGEN SATURATION 96.9 % (95.0-99.0); ABG PCO2 42 mmHg (32-45)
[2019-12-24] MEDS ORDERED: INSULIN GLARGINE 100 UNITS/ML 10 ML VIAL SQ SCH ×2 (09:00)
--- NOTE | 2019-12-24 12:30 | NUR ---
DR ORTEGA AT BEDSIDE, DISCONTINUED NIMBEX DRIP, ORDERED PER MD, AND CHANGED PEEP TO 7, ABG'S TO BE DRAWN IN 2 HOURS
--- NOTE | 2019-12-24 14:00 | NUR ---
NOTED WITH B/P 191/98 HR 100-110, NOTED TO BE USING ACCESSORY MUSCLES, O2 SATS AT 86-89, DR SHANNON SHARMA MADE AWARE, NEW ORDERS GIVEN TO RESTART NIMBEX DRIP AT THIS TIME.
--- NOTE | 2019-12-24 14:06 | NUR ---
UNLABORED RESPIRATIONS NOTED, NIMBEX INFUSING AT 2.49 MCG/KG/MIN, RESPIRATIONS 27, B/P 162/77, HR 105, O2 SAT AT 100%
[2019-12-24 14:59] LABS: ABG HCO3 32.9 mmol/L (21.0-28.0); ABG OXYGEN SATURATION 91.1 % (95.0-99.0); ABG PCO2 46 mmHg (32-45)
--- NOTE | 2019-12-24 15:20 | NUR ---
DR SHANNON SHARMA UPDATED WITH LATEST ABG RESULTS: PH 7.471, PCO2 46.1, HCO3 32.9, PO2 57.0, NEW ORDERS GIVEN TO CHANGE PEEP BACK TO 12
--- NOTE | 2019-12-24 16:45 | NUR ---
REMAINS WITH UNLABORED RESPIRATIONS, TOF 4 OF 4, B/P 140/81, SR 98, RESP 27, O2 SAT AT 100%
[2019-12-24] MEDS: HYDRALAZINE HCL 20 MG/ML VIAL IV PRN (17:31)
[2019-12-24] MEDS ORDERED: NICARDIPINE HCL 25 MG in SODIUM CHLORIDE 0.9% 240 ML IV SCH (18:15)
--- NOTE | 2019-12-24 18:15 | NUR ---
BLOOD PRESSURE NOTED AT 223/115, HR 129-134, O2 SAT AT 99% RESP 27, REMAINS VENTED, DR SHANNON SHARMA NOTIFIED VIA PHONE, NEW ORDERS GIVEN TO INITIATE CARDENE DRIP.
[2019-12-24] MEDS: NICARDIPINE 100 MG/100ML IV SCH ×2 (18:28)
--- NOTE | 2019-12-24 18:30 | NUR ---
CARDENE DRIP INITIATED AT THIS TIME 5MG/HR, DOSE INITIATION WITNESSED PER MELISA RAMIREZ RN
--- NOTE | 2019-12-24 18:57 | NUR ---
REMAINS WITH CARDENE DRIP AT 15MG/HR, CURRENT SBP 187/, HR 131
--- NOTE | 2019-12-24 21:00 | NUR ---
Assumed care of patient after report received from Rich DOTY at shift change. Heartrate up to 140. Titrating Fentanyl and Versed drips. Noted patient had a large, loose, normal colored BM. Malathi care and partial linen change. Cooling blanket on monitor mode, assured rectal probe in proper place. Checked against auxillary temp.
[2019-12-24 21:22] LABS: MAGNESIUM 1.9 mg/dL (1.80-2.40); POTASSIUM 3.9 mmol/L (3.5-5.1)
[2019-12-25] VITALS (73 sets, daily range): BP systolic 98–168; BP diastolic 52–93
--- NOTE | 2019-12-25 00:06 | NUR ---
Weaning Cardene drip, Fentanyl, and Versed drips. Magnesium level 1.9. Coverage in progress. Glucometer 317, covered with Regular Insulin sliding scale.
[2019-12-25] MEDS: MAGNESIUM 2GM PREMIX 50ML 50 ML IV PRN (01:06)
[2019-12-25] MEDS: INSULIN HUMULIN R 100 UNIT/ML 3ML SQ SCH ×5 (01:10→23:56)
[2019-12-25] MEDS: ARTIFICIAL TEARS 3.5 GM OINTMENT OU SCH ×5 (01:18→23:55)
[2019-12-25] MEDS: GUAIFENESIN-DM 200/20 MG 10 ML PO SCH ×7 (01:19→23:55)
[2019-12-25] MEDS: FENTANYL 1000MCG+NS 100ML 100 ML IV SCH ×3 (02:08→18:32)
[2019-12-25] MEDS: FUROSEMIDE 10 MG/ML 4ML VIAL IV SCH ×4 (02:51→23:52)
[2019-12-25] MEDS: MEROPENEM 1 GM VIAL IVP SCH ×3 (02:52→20:55)
[2019-12-25 05:28] LABS: HEMATOCRIT 35.4 % (36-48); MEAN CORPUSCULAR HEMOGLOBIN 29.4 pg (27.0-33.0); MEAN CORPUSCULAR HGB CONC 32.8 g/dL (32.0-36.0); MEAN CORPUSCULAR VOLUME 89.8 fL (79-99); PLATELET COUNT (AUTO) 230 K/uL (130-400); RED BLOOD CELL COUNT(AUTO) 3.94 MIL/uL (4.00-5.50); WHITE BLOOD COUNT (AUTO) 10.4 K/uL (4.8-10.8)
[2019-12-25] MEDS: HYDRALAZINE HCL 20 MG/ML VIAL IV PRN (07:52)
[2019-12-25] MEDS: MIDAZOLAM 50MG-0.9% NS 50ML 50 ML IV SCH ×2 (07:52→16:51)
[2019-12-25] MEDS: VANCOMYCIN 1.25 GM in SODIUM CHLORIDE 0.9% 250 ML IV SCH (08:40)
[2019-12-25] MEDS: POLYETHYLENE GLYCOL 3350 17 GM POWD.PACK PO SCH ×2 (08:41→20:58)
[2019-12-25] MEDS: CHLORHEXIDINE GLUCONATE 473 ML MOUTHWASH MM SCH ×2 (08:41→20:58)
[2019-12-25] MEDS: ENOXAPARIN SODIUM 40 MG/0.4 ML SYRINGE SQ SCH (08:42)
[2019-12-25] MEDS: NEUTRA-PHOS PACKET 1 EACH PO SCH ×3 (08:42→20:56)
[2019-12-25] MEDS: INSULIN GLARGINE 100 UNITS/ML 10 ML VIAL SQ SCH ×2 (08:45→21:00)
[2019-12-25] MEDS: CISATRACURIUM BESYLATE 100 MG in SODIUM CHLORIDE 0.9% 100 ML IV SCH ×3 (08:50→21:00)
--- NOTE | 2019-12-25 09:55 | NUR ---
RECTAL TEMP NOTED AT 94.9 F, PLACED MICHAEL HUGGER AT 43 C, SR 89, 02 SAT AT 99, NO RESPIRATORY DISTRESS NOTED, B/P 131/70, RESP 27
[2019-12-25] MEDS ORDERED: VASOPRESSIN 20 UNITS in SODIUM CHLORIDE 0.9% 100 ML IV SCH (14:00)
--- NOTE | 2019-12-25 16:56 | NUR ---
RD FOLLOW UP NOTE Recommend to continue trickle feeds as medically feasible. Pt with dehydration status, Recommend to increase flushes 125mL EVERY 4 HOURS. Monitored labs: CO2 35, BUN 35, BG 276, Alb 1.7. RD to follow up. Addendum: 12/25/19 at [address] Amended: Links added.
[2019-12-26] VITALS (75 sets, daily range): BP systolic 88–178; BP diastolic 47–95
[2019-12-26] MEDS: FENTANYL 1000MCG+NS 100ML 100 ML IV SCH ×4 (02:03→18:22)
[2019-12-26] MEDS: MIDAZOLAM 50MG-0.9% NS 50ML 50 ML IV SCH ×4 (02:03→22:17)
[2019-12-26] MEDS: MEROPENEM 1 GM VIAL IVP SCH ×3 (02:03→22:11)
[2019-12-26] MEDS: INSULIN HUMULIN R 100 UNIT/ML 3ML SQ SCH ×4 (05:55→23:37)
[2019-12-26] MEDS: GUAIFENESIN-DM 200/20 MG 10 ML PO SCH ×5 (05:55→22:13)
[2019-12-26] MEDS: POLYETHYLENE GLYCOL 3350 17 GM POWD.PACK PO SCH ×2 (08:04→22:08)
[2019-12-26] MEDS: PANTOPRAZOLE 40 MG/VIAL IVP SCH (08:04)
[2019-12-26] MEDS: CHLORHEXIDINE GLUCONATE 473 ML MOUTHWASH MM SCH ×2 (08:05→22:09)
[2019-12-26] MEDS: NEUTRA-PHOS PACKET 1 EACH PO SCH ×3 (08:06→22:14)
[2019-12-26] MEDS: ENOXAPARIN SODIUM 40 MG/0.4 ML SYRINGE SQ SCH (08:08)
[2019-12-26] MEDS: INSULIN GLARGINE 100 UNITS/ML 10 ML VIAL SQ SCH (08:11)
[2019-12-26 08:22] LABS: HEMATOCRIT 37.3 % (36-48); MEAN CORPUSCULAR HEMOGLOBIN 29.4 pg (27.0-33.0); MEAN CORPUSCULAR HGB CONC 31.4 g/dL (32.0-36.0); MEAN CORPUSCULAR VOLUME 93.7 fL (79-99); PLATELET COUNT (AUTO) 236 K/uL (130-400); RED BLOOD CELL COUNT(AUTO) 3.98 MIL/uL (4.00-5.50); RED CELL DISTRIBUTION WIDTH 13.6 % (11.0-15.5); WHITE BLOOD COUNT (AUTO) 9.3 K/uL (4.8-10.8)
[2019-12-26 08:35] LABS: ALBUMIN 1.7 g/dL (3.5-5.0); BILIRUBIN,TOTAL 0.6 mg/dL (0.2-1.0); CREATININE 0.9 mg/dL (0.5-1.5); PHOSPHORUS 3.6 mg/dL (2.5-4.9); POTASSIUM 3.6 mmol/L (3.5-5.1)
[2019-12-26] MEDS: ARTIFICIAL TEARS 3.5 GM OINTMENT OU SCH ×3 (08:41→22:11)
[2019-12-26] MEDS: POTASSIUM CHLORIDE 20MEQ/100ML 100 ML IV PRN (08:57)
[2019-12-26] MEDS: NICARDIPINE 100 MG/100ML IV SCH ×2 (08:57)
[2019-12-26] MEDS: FUROSEMIDE 10 MG/ML 4ML VIAL IV SCH ×2 (08:58→18:14)
[2019-12-26 09:00] LABS: TOTAL PROTEIN, SERUM 6.8 g/dL (6.0-8.3)
[2019-12-26 09:27] LABS: ABG BASE EXCESS 9.3 mmol/L (-2.0-3.0); ABG HCO3 33.3 mmol/L (21.0-28.0); ABG OXYGEN SATURATION 96.7 % (95.0-99.0); ABG PCO2 43 mmHg (32-45)
[2019-12-26] MEDS: CISATRACURIUM BESYLATE 100 MG in SODIUM CHLORIDE 0.9% 100 ML IV SCH (10:44)
--- NOTE | 2019-12-26 16:33 | NUR ---
RD UPDATE FREE WATER FLUSH: 120ML X 1 TUBE FEEDING RATE: 30MLS/HR. MEETING 75% PROTEIN NEEDS. IMPROVING BG LEVELS. RD TO CONTINUE TO MONITOR. PLEASE NOTIFY CONCERNS ARISE.
[2019-12-26] MEDS ORDERED: VANCOMYCIN PROTOCOL PER PHARMACY IV SCH (19:30)
[2019-12-26] MEDS: VANCOMYCIN 1.25 GM in SODIUM CHLORIDE 0.9% 250 ML IV SCH (22:10)
[2019-12-27] VITALS (80 sets, daily range): BP systolic 93–140; BP diastolic 55–83
[2019-12-27] MEDS: INSULIN GLARGINE 100 UNITS/ML 10 ML VIAL SQ SCH ×3 (00:27→20:57)
[2019-12-27] MEDS: FENTANYL 1000MCG+NS 100ML 100 ML IV SCH ×5 (00:53→20:18)
[2019-12-27] MEDS: GUAIFENESIN-DM 200/20 MG 10 ML PO SCH ×6 (02:24→20:11)
[2019-12-27] MEDS: FUROSEMIDE 10 MG/ML 4ML VIAL IV SCH ×3 (02:24→18:12)
[2019-12-27] MEDS: ARTIFICIAL TEARS 3.5 GM OINTMENT OU SCH ×4 (02:54→20:31)
[2019-12-27] MEDS: MIDAZOLAM 50MG-0.9% NS 50ML 50 ML IV SCH ×3 (03:24→20:17)
[2019-12-27] MEDS: MEROPENEM 1 GM VIAL IVP SCH ×3 (05:11→20:07)
[2019-12-27 05:49] LABS: BASOPHILS % (AUTO) 0.6 % (0.0-5.0); EOSINOPHILS % (AUTO) 2.9 % (0.0-8.0); HEMATOCRIT 36.3 % (36-48); LYMPHOCYTES % (AUTO) 18.2 % (21.0-51.0); MEAN CORPUSCULAR HEMOGLOBIN 29.1 pg (27.0-33.0); MEAN CORPUSCULAR HGB CONC 31.4 g/dL (32.0-36.0); MEAN CORPUSCULAR VOLUME 92.6 fL (79-99); MONOCYTES % (AUTO) 9.6 % (3.0-13.0); NEUTROPHILS % (AUTO) 67.8 % (40.0-77.0); PLATELET COUNT (AUTO) 249 K/uL (130-400); RED BLOOD CELL COUNT(AUTO) 3.92 MIL/uL (4.00-5.50); RED CELL DISTRIBUTION WIDTH 13.8 % (11.0-15.5); WHITE BLOOD COUNT (AUTO) 8.6 K/uL (4.8-10.8)
[2019-12-27] MEDS: INSULIN HUMULIN R 100 UNIT/ML 3ML SQ SCH ×3 (05:52→18:32)
[2019-12-27 06:03] LABS: CREATININE 1.2 mg/dL (0.5-1.5); MAGNESIUM 2.3 mg/dL (1.80-2.40); POTASSIUM 3.7 mmol/L (3.5-5.1)
[2019-12-27 08:24] LABS: ABG BASE EXCESS 10.5 mmol/L (-2.0-3.0); ABG HCO3 36.8 mmol/L (21.0-28.0); ABG OXYGEN SATURATION 94.8 % (95.0-99.0); ABG PCO2 55 mmHg (32-45)
[2019-12-27] MEDS: NEUTRA-PHOS PACKET 1 EACH PO SCH ×3 (10:04→20:11)
[2019-12-27] MEDS: ENOXAPARIN SODIUM 40 MG/0.4 ML SYRINGE SQ SCH (10:04)
[2019-12-27] MEDS: CHLORHEXIDINE GLUCONATE 473 ML MOUTHWASH MM SCH ×2 (10:04→20:31)
[2019-12-27] MEDS: PANTOPRAZOLE 40 MG/VIAL IVP SCH (10:05)
[2019-12-27] MEDS: VANCOMYCIN 1.25 GM in SODIUM CHLORIDE 0.9% 250 ML IV SCH ×2 (10:05→20:07)
[2019-12-27] MEDS: POLYETHYLENE GLYCOL 3350 17 GM POWD.PACK PO SCH ×2 (10:05→20:09)
[2019-12-27] MEDS: POTASSIUM CHLORIDE 10% ELIXIR 20 MEQ/15 ML UDCUP PO PRN (14:02)
--- NOTE | 2019-12-27 14:10 | NUR ---
RD UPDATE - [facility] GUIDELINES RECOMMEND INCREASE TUBE FEEDING RATE TO MEET PT INCREASED NUTRITIONAL ACCORDING TO [facility] COVID-19 GUIDELINES RECOMMENDED FORMULA/RATE: PIVOT 1.5, GRADUALLY INCREASE TO GOAL OF 40MLS/HR (1440KCAL/90GM PROTEIN) ALTERNATIVE FORMULA/RATE: VITAL HIGH PROTEIN, GRADUALLY INCREASE TO 45MLS/HR (1080KCAL/95GM PROTEIN) *PRONE POSITIONING RECOMMENDED IN CASES OF ARDS. CONTINUED ENTERAL NUTRITION.*
--- NOTE | 2019-12-27 15:00 | NUR ---
Notification to [facility]/Critical care Notified Ariane MATCHBOOK ASSEMBLER of patients both arms being swollen although right where PICC is in place is significantly more swollen than left. also repeated and re-notified this mornings critical D-dimer result
[2019-12-28] VITALS (52 sets, daily range): BP systolic 105–177; BP diastolic 56–96
[2019-12-28] MEDS: FENTANYL 1000MCG+NS 100ML 100 ML IV SCH ×6 (00:05→21:49)
[2019-12-28] MEDS: GUAIFENESIN-DM 200/20 MG 10 ML PO SCH ×6 (01:10→21:49)
[2019-12-28] MEDS: ARTIFICIAL TEARS 3.5 GM OINTMENT OU SCH ×4 (01:34→19:45)
[2019-12-28] MEDS: FUROSEMIDE 10 MG/ML 4ML VIAL IV SCH ×3 (01:36→17:57)
[2019-12-28] MEDS: MEROPENEM 1 GM VIAL IVP SCH (03:16)
[2019-12-28 05:41] LABS: BASOPHILS % (AUTO) 0.7 % (0.0-5.0); EOSINOPHILS % (AUTO) 3.9 % (0.0-8.0); HEMATOCRIT 34.9 % (36-48); LYMPHOCYTES % (AUTO) 17.9 % (21.0-51.0); MEAN CORPUSCULAR HEMOGLOBIN 29.4 pg (27.0-33.0); MEAN CORPUSCULAR HGB CONC 31.5 g/dL (32.0-36.0); MEAN CORPUSCULAR VOLUME 93.3 fL (79-99); MONOCYTES % (AUTO) 11.1 % (3.0-13.0); NEUTROPHILS % (AUTO) 65.7 % (40.0-77.0); PLATELET COUNT (AUTO) 228 K/uL (130-400); RED BLOOD CELL COUNT(AUTO) 3.74 MIL/uL (4.00-5.50); RED CELL DISTRIBUTION WIDTH 13.6 % (11.0-15.5); WHITE BLOOD COUNT (AUTO) 7.2 K/uL (4.8-10.8)
[2019-12-28] MEDS: INSULIN HUMULIN R 100 UNIT/ML 3ML SQ SCH ×4 (06:00→17:34)
[2019-12-28 06:09] LABS: ALBUMIN 1.8 g/dL (3.5-5.0); BILIRUBIN,TOTAL 0.5 mg/dL (0.2-1.0); CREATININE 1.1 mg/dL (0.5-1.5); MAGNESIUM 2.1 mg/dL (1.80-2.40); PHOSPHORUS 3.7 mg/dL (2.5-4.9); POTASSIUM 3.9 mmol/L (3.5-5.1); TOTAL PROTEIN, SERUM 6.6 g/dL (6.0-8.3)
[2019-12-28] MEDS: MIDAZOLAM 50MG-0.9% NS 50ML 50 ML IV SCH ×4 (06:43→21:49)
[2019-12-28] MEDS: INSULIN GLARGINE 100 UNITS/ML 10 ML VIAL SQ SCH ×2 (06:43→21:55)
[2019-12-28 07:02] LABS: ABG BASE EXCESS 9.3 mmol/L (-2.0-3.0); ABG HCO3 33.4 mmol/L (21.0-28.0); ABG OXYGEN SATURATION 97.9 % (95.0-99.0); ABG PCO2 43 mmHg (32-45)
[2019-12-28] MEDS: VANCOMYCIN 1.25 GM in SODIUM CHLORIDE 0.9% 250 ML IV SCH ×2 (08:05→21:00)
[2019-12-28] MEDS: PANTOPRAZOLE 40 MG/VIAL IVP SCH (08:06)
[2019-12-28] MEDS: POLYETHYLENE GLYCOL 3350 17 GM POWD.PACK PO SCH ×2 (08:06→21:00)
[2019-12-28] MEDS: NEUTRA-PHOS PACKET 1 EACH PO SCH ×3 (08:07→21:53)
[2019-12-28] MEDS: CHLORHEXIDINE GLUCONATE 473 ML MOUTHWASH MM SCH ×2 (08:08→21:56)
[2019-12-28] MEDS: ENOXAPARIN SODIUM 40 MG/0.4 ML SYRINGE SQ SCH (08:46)
[2019-12-28] MEDS ORDERED: SODIUM CHLORIDE 0.9% 1000ML 1,000 ML IV ONE (15:55)
[2019-12-28] MEDS: ACETAMINOPHEN 325 MG TAB PO PRN (21:50)
--- NOTE | 2019-12-28 22:00 | NUR ---
Called [facility] Spoke to TRAVEL TRAILER COMPONENTS ASSEMBLER Jailene Sanchez about right arm being swollen and red around PICC line also PICC line being sluggish. Orders received and placed
[2019-12-29] VITALS (57 sets, daily range): BP systolic 90–189; BP diastolic 49–89
[2019-12-29] MEDS: FUROSEMIDE 10 MG/ML 4ML VIAL IV SCH ×3 (00:46→18:53)
[2019-12-29] MEDS: INSULIN HUMULIN R 100 UNIT/ML 3ML SQ SCH ×4 (00:46→18:54)
[2019-12-29] MEDS: ARTIFICIAL TEARS 3.5 GM OINTMENT OU SCH ×4 (00:47→22:28)
[2019-12-29] MEDS: GUAIFENESIN-DM 200/20 MG 10 ML PO SCH ×6 (00:47→21:11)
[2019-12-29] MEDS ORDERED: DiphenhydrAMINE HCL 50 MG/ML VIAL IV PRN (01:15)
[2019-12-29] MEDS ORDERED: DiphenhydrAMINE HCL 50 MG/ML VIAL ONE (02:22)
[2019-12-29] MEDS: MIDAZOLAM 50MG-0.9% NS 50ML 50 ML IV SCH ×3 (02:24→17:01)
[2019-12-29] MEDS: FENTANYL 1000MCG+NS 100ML 100 ML IV SCH ×3 (02:24→17:01)
[2019-12-29] MEDS: ACETAMINOPHEN 325 MG TAB PO PRN ×2 (02:26→06:42)
[2019-12-29] MEDS: INSULIN GLARGINE 100 UNITS/ML 10 ML VIAL SQ SCH ×2 (06:44→21:29)
[2019-12-29] MEDS: POLYETHYLENE GLYCOL 3350 17 GM POWD.PACK PO SCH (08:31)
[2019-12-29] MEDS: CHLORHEXIDINE GLUCONATE 473 ML MOUTHWASH MM SCH ×2 (08:31→22:27)
[2019-12-29] MEDS: NYSTATIN 15 GM POWDER TP SCH ×2 (08:31→21:06)
[2019-12-29] MEDS: NEUTRA-PHOS PACKET 1 EACH PO SCH ×3 (08:32→21:10)
[2019-12-29] MEDS ORDERED: CLONAZEPAM 1 MG TABLET ONE (08:36)
[2019-12-29] MEDS: PANTOPRAZOLE 40 MG/VIAL IVP SCH (08:41)
[2019-12-29] MEDS ORDERED: ENOXAPARIN SODIUM 100 MG/1 ML SQ SCH (09:00)
[2019-12-29] MEDS: VANCOMYCIN 1.25 GM in SODIUM CHLORIDE 0.9% 250 ML IV SCH (09:00)
[2019-12-29] MEDS: CLONAZEPAM 0.5 MG TABLET PO SCH ×2 (11:47→18:53)
[2019-12-29 13:17] LABS: INR 1.01 (0.85-1.15); PARTIAL THROMBOPLASTIN TIME 29.5 SEC (26.3-35.5); PROTHROMBIN TIME 10.9 SEC (9.6-11.6)
[2019-12-29 14:50] LABS: CREATININE 1.1 mg/dL (0.5-1.5); MAGNESIUM 2.2 mg/dL (1.80-2.40); PHOSPHORUS 3.7 mg/dL (2.5-4.9); POTASSIUM 3.7 mmol/L (3.5-5.1)
[2019-12-29] MEDS ORDERED: DEXMEDETOMIDINE HCL 200 MCG in SODIUM CHLORIDE 0.9% 50 ML IV SCH (15:30)
[2019-12-29] MEDS ORDERED: DEXMEDETOMIDINE HCL 400 MCG in SODIUM CHLORIDE 0.9% 100 ML IV SCH (18:15)
[2019-12-29] MEDS ORDERED: POLYETHYLENE GLYCOL 3350 17 GM POWD.PACK PO PRN (19:15)
[2019-12-29] MEDS ORDERED: LINEZOLID 600 MG/ISO-OSM 300 ML IV SCH (21:00)
[2019-12-29] MEDS: LINEZOLID 600 MG/ISO-OSM 300 ML IV SCH (21:05)
[2019-12-29] MEDS: ENOXAPARIN SODIUM 100 MG/1 ML SQ SCH (21:11)
[2019-12-30] VITALS (76 sets, daily range): BP systolic 90–172; BP diastolic 51–92
[2019-12-30] MEDS: CLONAZEPAM 0.5 MG TABLET PO SCH ×4 (00:45→18:08)
[2019-12-30] MEDS: GUAIFENESIN-DM 200/20 MG 10 ML PO SCH ×6 (00:46→21:17)
[2019-12-30] MEDS: INSULIN HUMULIN R 100 UNIT/ML 3ML SQ SCH ×4 (01:06→18:05)
[2019-12-30] MEDS: FUROSEMIDE 10 MG/ML 4ML VIAL IV SCH ×3 (02:17→18:08)
[2019-12-30] MEDS: ARTIFICIAL TEARS 3.5 GM OINTMENT OU SCH ×4 (02:18→19:33)
[2019-12-30] MEDS: FENTANYL 1000MCG+NS 100ML 100 ML IV SCH ×2 (02:19→07:50)
[2019-12-30 06:15] LABS: CREATININE 0.9 mg/dL (0.5-1.5); MAGNESIUM 2.1 mg/dL (1.80-2.40); PHOSPHORUS 3.3 mg/dL (2.5-4.9); POTASSIUM 3.5 mmol/L (3.5-5.1)
[2019-12-30] MEDS: PANTOPRAZOLE 40 MG/VIAL IVP SCH (07:44)
[2019-12-30] MEDS: NYSTATIN 15 GM POWDER TP SCH ×2 (07:44→20:01)
[2019-12-30] MEDS: LINEZOLID 600 MG/ISO-OSM 300 ML IV SCH ×2 (07:45→19:58)
[2019-12-30] MEDS: ENOXAPARIN SODIUM 100 MG/1 ML SQ SCH ×2 (07:46→20:00)
[2019-12-30] MEDS: NEUTRA-PHOS PACKET 1 EACH PO SCH ×3 (07:46→20:00)
[2019-12-30] MEDS: INSULIN GLARGINE 100 UNITS/ML 10 ML VIAL SQ SCH ×2 (07:48→21:16)
[2019-12-30] MEDS: CHLORHEXIDINE GLUCONATE 473 ML MOUTHWASH MM SCH ×2 (07:49→20:06)
[2019-12-30] MEDS: MIDAZOLAM 50MG-0.9% NS 50ML 50 ML IV SCH (07:52)
[2019-12-30] MEDS: DEXMEDETOMIDINE HCL 1,000 MCG in SODIUM CHLORIDE 0.9% 250 ML IV SCH (13:50)
[2019-12-30] MEDS: DIAZEPAM 5 MG TABLET PO SCH ×2 (13:50→18:09)
[2019-12-30] MEDS: POTASSIUM CHLORIDE 10% ELIXIR 20 MEQ/15 ML UDCUP PO PRN (13:51)
[2019-12-30] MEDS: FENTANYL 50 MCG/HR PATCH TD SCH (13:51)
--- NOTE | 2019-12-30 15:25 | NUR ---
ROBY FOLLOW UP NOTE PT TOLERATING PIVOT 1.5, CONTINUOUS TUBE FEEDING. RATE INCREASED TO 40MLS/HR. PT REMAINS INTUBATED, SEDATED. NOTED BG 234. LBM 12/29/19. PT WITH FLUID OVERLOAD, ALL FLUSHES HELD AT THIS TIME, PER NOTE. RD TO CONTINUE TO MONITOR. PLEASE CONTACT ROBY CONCERNS ARISE. Addendum: 12/30/19 at [address] Amended: Links added.
--- NOTE | 2019-12-30 20:00 | NUR ---
ASSESSMENT PT INTUBATED AND SEDATED, ETT 7.5, AC/16/40%/350 PEEP 5. FENTANYL/VERSED/PRECEDEX INFUSING WITHOUT DIFFICULTY. PT OPENS EYES TO VERBAL STIMULI, FOLLOWS COMMANDS, EMOTIONAL SUPPORT PROVIDED. 14FR NGT WITH PIVOT1.5 INFUSING. 16FR FC TO BSD, RECTAL TUBE IN PLACE. BED ON ROTATION MODE. WHITE BOARD UP-DATED. BEDSIDE MONITOR PARAMETERS REVIEWED AND ADJUSTED.. SCD IN PLACE. PT IN CO-VID 19 ISOLATION - RESP. ASSESSMENT COMPETED, SEE FLOW SHEET
[2019-12-31] VITALS (48 sets, daily range): BP systolic 118–169; BP diastolic 62–90
[2019-12-31] MEDS: INSULIN HUMULIN R 100 UNIT/ML 3ML SQ SCH ×4 (00:38→18:00)
[2019-12-31] MEDS: CLONAZEPAM 0.5 MG TABLET PO SCH ×5 (00:41→23:35)
[2019-12-31] MEDS: DIAZEPAM 5 MG TABLET PO SCH ×3 (00:42→10:58)
[2019-12-31] MEDS: GUAIFENESIN-DM 200/20 MG 10 ML PO SCH ×6 (01:00→20:31)
[2019-12-31] MEDS: ARTIFICIAL TEARS 3.5 GM OINTMENT OU SCH ×4 (01:00→20:27)
[2019-12-31] MEDS: FUROSEMIDE 10 MG/ML 4ML VIAL IV SCH ×3 (01:03→17:41)
--- NOTE | 2019-12-31 04:00 | NUR ---
ASSESSMENT PT REMAINS INTUBATED AND SEDATED, ETT 7.5, AC/16/40%/350 PEEP 5. FENTANYL/VERSED/PRECEDEX CONTINUE TO INFUSE WITHOUT DIFFICULTY. CARDENE ALSO INFUSING FOR BP CONTROL. PT OPENS EYES TO VERBAL STIMULI, FOLLOWS COMMANDS, EMOTIONAL SUPPORT PROVIDED. 14FR NGT WITH PIVOT1.5 INFUSING. 16FR FC TO BSD, RECTAL TUBE IN PLACE. BED ON ROTATION MODE. SCD IN PLACE. PT IN CO-VID 19 ISOLATION - RESP. ASSESSMENT COMPETED, SEE FLOW SHEET
[2019-12-31] MEDS: FENTANYL 1000MCG+NS 100ML 100 ML IV SCH (04:47)
[2019-12-31] MEDS: DEXMEDETOMIDINE HCL 1,000 MCG in SODIUM CHLORIDE 0.9% 250 ML IV SCH ×2 (04:47→23:39)
[2019-12-31 05:08] LABS: BASOPHILS % (AUTO) 0.8 % (0.0-5.0); EOSINOPHILS % (AUTO) 3.5 % (0.0-8.0); HEMATOCRIT 32.6 % (36-48); LYMPHOCYTES % (AUTO) 21.3 % (21.0-51.0); MEAN CORPUSCULAR HEMOGLOBIN 29.6 pg (27.0-33.0); MEAN CORPUSCULAR HGB CONC 33.4 g/dL (32.0-36.0); MEAN CORPUSCULAR VOLUME 88.6 fL (79-99); MONOCYTES % (AUTO) 9.7 % (3.0-13.0); NEUTROPHILS % (AUTO) 63.8 % (40.0-77.0); PLATELET COUNT (AUTO) 229 K/uL (130-400); RED BLOOD CELL COUNT(AUTO) 3.68 MIL/uL (4.00-5.50); RED CELL DISTRIBUTION WIDTH 12.6 % (11.0-15.5); WHITE BLOOD COUNT (AUTO) 6.5 K/uL (4.8-10.8)
[2019-12-31 05:25] LABS: INR 0.98 (0.85-1.15); PARTIAL THROMBOPLASTIN TIME 36.5 SEC (26.3-35.5); PROTHROMBIN TIME 10.6 SEC (9.6-11.6)
[2019-12-31 05:35] LABS: ALBUMIN 1.9 g/dL (3.5-5.0); BILIRUBIN,TOTAL 0.3 mg/dL (0.2-1.0); CREATININE 0.8 mg/dL (0.5-1.5); MAGNESIUM 2.4 mg/dL (1.80-2.40); PHOSPHORUS 3.1 mg/dL (2.5-4.9); POTASSIUM 3.3 mmol/L (3.5-5.1); TOTAL PROTEIN, SERUM 6.6 g/dL (6.0-8.3)
[2019-12-31 06:03] LABS: ABG BASE EXCESS 8.7 mmol/L (-2.0-3.0); ABG HCO3 33.7 mmol/L (21.0-28.0); ABG OXYGEN SATURATION 97.1 % (95.0-99.0); ABG PCO2 47 mmHg (32-45)
[2019-12-31] MEDS: INSULIN GLARGINE 100 UNITS/ML 10 ML VIAL SQ SCH ×2 (06:36→22:32)
[2019-12-31] MEDS: NEUTRA-PHOS PACKET 1 EACH PO SCH ×3 (08:54→20:30)
[2019-12-31] MEDS: POTASSIUM CHLORIDE 10% ELIXIR 20 MEQ/15 ML UDCUP PO PRN ×2 (08:55→19:03)
[2019-12-31] MEDS: LINEZOLID 600 MG/ISO-OSM 300 ML IV SCH ×2 (08:55→20:27)
[2019-12-31] MEDS: PANTOPRAZOLE 40 MG/VIAL IVP SCH (08:55)
[2019-12-31] MEDS: ENOXAPARIN SODIUM 100 MG/1 ML SQ SCH ×2 (09:02→20:31)
[2019-12-31] MEDS: NYSTATIN 15 GM POWDER TP SCH ×2 (09:05→20:30)
[2019-12-31] MEDS: CHLORHEXIDINE GLUCONATE 473 ML MOUTHWASH MM SCH ×2 (09:06→20:28)
[2019-12-31] MEDS: ZOSYN 3.375GM+NS 50ML 50 ML IV SCH ×3 (10:59→20:28)
[2019-12-31] MEDS ORDERED: FLUCONAZOLE 200 MG/NS 100 ML 100 ML IV SCH (12:00)
[2019-12-31] MEDS ORDERED: HYDROMORPHONE 1 MG/1 ML AMP IVP PRN (12:30)
--- NOTE | 2019-12-31 13:10 | NUR ---
Patient self extubation Patient was in room with resp therapist. He has finished suctioning patient and as he stepped out of the room was told by SAFETY SPECIALIST patient grabbed tube and self extubated. Was called during lunch break to see patient as she had self extubated. Upon entering room Patient was tachycardic and tachypneic. Patient was placed on non rebreather. Dr. Ro called and came to bedside. Decision to reintubate was denied as patient recovered and was no longer in resp distress. We will monitor patient closely but she appears to be doing well at this time.
[2019-12-31] MEDS ORDERED: ZIPRASIDONE MESYLATE 20 MG/VIAL IM SCH (13:44)
--- NOTE | 2019-12-31 14:00 | NUR ---
Spoke with Dr. Vega he states its ok to put patient with soft mittens to protect patients safety. Mittens places not to tight finger able to place in between wrist. Patient checked on frequently every 2 hrs to assure nothing is needed.
--- NOTE | 2019-12-31 14:04 | NUR ---
pt was on CPAP 5 PS10 with increased HR 150's. Pt was placed back on AC with previous settings. As i exited the room pt was witnessed by Mikie DOTY self extubate herself. Pt then was placed on 100% Non rebreather. Dr. Acevedo arrived 5 min later and assessed the pt and ordered pt to be placed on high flow nasal cannula. Pt was then placed on HFNC 35L with 100% fio2. Pt was combative and was pulled on all equipment. Pt calmed down enough to be placed on HFNC. Addendum: 12/31/19 at 1410 by ANTHONY LAWRENCE RT Amended: Links added.
--- NOTE | 2019-12-31 14:05 | NUR ---
This event took place @ 13:10 self extubation - 1405 HFNC Addendum: 12/31/19 at 1453 by ANTHONY LAWRENCE RT Amended: Links added.
[2019-12-31 15:42] LABS: ABG BASE EXCESS 9.7 mmol/L (-2.0-3.0); ABG OXYGEN SATURATION 99.7 % (95.0-99.0); ABG PCO2 49 mmHg (32-45)
--- NOTE | 2019-12-31 20:00 | NUR ---
ASSESSMENT PT ON HI-FLOW O2 35L FIO2 70% NC. LH 20G WITH PRECEDEX INFUSING WITHOUT DIFFICULTY. PT OPENS EYES TO VERBAL STIMULI, FOLLOWS COMMANDS, ORIENTED TO PERSON AND PLACE, RE-ORIENTED TO TIME. EMOTIONAL SUPPORT PROVIDED. PT'S VOICE IS SOFT BUT HOARSE. 14FR NGT CLAMPED. 16FR FC TO BSD, RECTAL TUBE IN PLACE. BED ON ROTATION MODE. WHITE BOARD UP-DATED. BEDSIDE MONITOR PARAMETERS REVIEWED AND ADJUSTED.. SCD IN PLACE. PT IN CO-VID 19 ISOLATION - RESP. ASSESSMENT COMPETED, SEE FLOW SHEET
[2020-01-01] VITALS (32 sets, daily range): BP systolic 126–183; BP diastolic 36–99
--- NOTE | 2020-01-01 | NUR ---
ASSESSMENT PT ON HI-FLOW O2 30L FIO2 60% NC. LH 20G WITH PRECEDEX INFUSING WITHOUT DIFFICULTY. PT OPENS EYES TO VERBAL STIMULI, FOLLOWS COMMANDS, ORIENTED TO PERSON AND PLACE, RE-ORIENTED TO TIME. EMOTIONAL SUPPORT PROVIDED. PT'S VOICE IS SOFT AND REMAINS HOARSE. 14FR NGT CLAMPED AND MEDS GIVEN VIA NGT. HOB AT 30 DEGREES. 16FR FC TO BSD, RECTAL TUBE IN PLACE. BED ON ROTATION MODE. SCD IN PLACE. PT IN CO-VID 19 ISOLATION - RESP. ASSESSMENT COMPETED, SEE FLOW SHEET.
[2020-01-01] MEDS: ARTIFICIAL TEARS 3.5 GM OINTMENT OU SCH ×3 (01:05→12:33)
[2020-01-01] MEDS: GUAIFENESIN-DM 200/20 MG 10 ML PO SCH ×6 (01:05→21:27)
[2020-01-01] MEDS: FUROSEMIDE 10 MG/ML 4ML VIAL IV SCH ×3 (01:05→18:33)
[2020-01-01] MEDS: ZOSYN 3.375GM+NS 50ML 50 ML IV SCH ×3 (04:56→21:25)
[2020-01-01] MEDS: INSULIN HUMULIN R 100 UNIT/ML 3ML SQ SCH ×5 (04:57→23:37)
[2020-01-01 05:39] LABS: BASOPHILS % (AUTO) 0.7 % (0.0-5.0); EOSINOPHILS % (AUTO) 1.2 % (0.0-8.0); HEMATOCRIT 34.3 % (36-48); LYMPHOCYTES % (AUTO) 20.4 % (21.0-51.0); MEAN CORPUSCULAR HEMOGLOBIN 29.1 pg (27.0-33.0); MEAN CORPUSCULAR HGB CONC 33.5 g/dL (32.0-36.0); MEAN CORPUSCULAR VOLUME 86.8 fL (79-99); MONOCYTES % (AUTO) 8.7 % (3.0-13.0); NEUTROPHILS % (AUTO) 68.3 % (40.0-77.0); PLATELET COUNT (AUTO) 286 K/uL (130-400); RED BLOOD CELL COUNT(AUTO) 3.95 MIL/uL (4.00-5.50); WHITE BLOOD COUNT (AUTO) 10.7 K/uL (4.8-10.8)
[2020-01-01 05:59] LABS: ALBUMIN 2.3 g/dL (3.5-5.0); BILIRUBIN,TOTAL 0.6 mg/dL (0.2-1.0); CREATININE 0.9 mg/dL (0.5-1.5); MAGNESIUM 2.2 mg/dL (1.80-2.40); PHOSPHORUS 3.8 mg/dL (2.5-4.9); TOTAL PROTEIN, SERUM 7.2 g/dL (6.0-8.3)
[2020-01-01 06:03] LABS: POTASSIUM 2.6 mmol/L (3.5-5.1)
[2020-01-01] MEDS: INSULIN GLARGINE 100 UNITS/ML 10 ML VIAL SQ SCH ×2 (06:28→21:28)
[2020-01-01 07:40] LABS: ABG BASE EXCESS 13.5 mmol/L (-2.0-3.0); ABG HCO3 39.1 mmol/L (21.0-28.0); ABG PCO2 52 mmHg (32-45)
[2020-01-01] MEDS: LINEZOLID 600 MG/ISO-OSM 300 ML IV SCH ×2 (08:35→21:25)
[2020-01-01] MEDS: PANTOPRAZOLE 40 MG/VIAL IVP SCH (08:37)
[2020-01-01] MEDS: ENOXAPARIN SODIUM 100 MG/1 ML SQ SCH ×2 (08:43→21:26)
[2020-01-01] MEDS: NEUTRA-PHOS PACKET 1 EACH PO SCH ×3 (08:53→16:00)
[2020-01-01] MEDS: LIDOCAINE HCL-MPF 1% 2ML VIAL IV PRN ×2 (09:01→17:13)
[2020-01-01] MEDS: NYSTATIN 15 GM POWDER TP SCH ×2 (09:08→21:27)
[2020-01-01] MEDS: POTASSIUM CHLORIDE 20MEQ/100ML 100 ML IV PRN ×4 (09:09→18:39)
[2020-01-01] MEDS: POTASSIUM CHLORIDE 10% ELIXIR 20 MEQ/15 ML UDCUP PO PRN ×2 (09:10→17:11)
[2020-01-01] MEDS: CHLORHEXIDINE GLUCONATE 473 ML MOUTHWASH MM SCH ×2 (09:10→21:00)
[2020-01-01] MEDS ORDERED: ONDANSETRON HCL 4 MG/2 ML VIAL ONE (12:19)
[2020-01-01] MEDS ORDERED: ONDANSETRON HCL 4 MG/2 ML VIAL IVP SCH (12:30)
[2020-01-01] MEDS: CLONAZEPAM 0.5 MG TABLET PO SCH ×2 (12:33→23:57)
--- NOTE | 2020-01-01 13:30 | NUR ---
MD ROUNDS. PT CHANGED FROM HIGH FLOW OXYGEN TO 4L NASAL CANNULA,ORDERED REMOVAL OF RECTAL TUBE.
--- NOTE | 2020-01-01 17:30 | NUR ---
REMOVED RECTAL TUBE WITHOUT INCIDENT. WEANED OFF PRESEDEX
[2020-01-01] MEDS: FLUCONAZOLE 200 MG/NS 100 ML 100 ML IV SCH (21:26)
[2020-01-02] VITALS (24 sets, daily range): BP systolic 126–167; BP diastolic 74–101
[2020-01-02] MEDS: GUAIFENESIN-DM 200/20 MG 10 ML PO SCH ×6 (01:38→21:34)
[2020-01-02] MEDS: FUROSEMIDE 10 MG/ML 4ML VIAL IV SCH ×3 (01:38→16:26)
[2020-01-02] MEDS: ZOSYN 3.375GM+NS 50ML 50 ML IV SCH ×3 (05:01→21:39)
[2020-01-02] MEDS: INSULIN HUMULIN R 100 UNIT/ML 3ML SQ SCH ×3 (06:00→18:00)
[2020-01-02] MEDS: INSULIN GLARGINE 100 UNITS/ML 10 ML VIAL SQ SCH ×2 (06:30→21:36)
[2020-01-02 08:18] LABS: HEMATOCRIT 34.1 % (36-48); MEAN CORPUSCULAR HEMOGLOBIN 30.3 pg (27.0-33.0); MEAN CORPUSCULAR HGB CONC 35.5 g/dL (32.0-36.0); MEAN CORPUSCULAR VOLUME 85.3 fL (79-99); PLATELET COUNT (AUTO) 320 K/uL (130-400); RED CELL DISTRIBUTION WIDTH 13.1 % (11.0-15.5); WHITE BLOOD COUNT (AUTO) 10.4 K/uL (4.8-10.8)
[2020-01-02] MEDS: LINEZOLID 600 MG/ISO-OSM 300 ML IV SCH ×2 (08:23→21:31)
[2020-01-02] MEDS: FLUCONAZOLE 200 MG/NS 100 ML 100 ML IV SCH (08:23)
[2020-01-02] MEDS: POTASSIUM CHLORIDE 10% ELIXIR 20 MEQ/15 ML UDCUP PO PRN (08:24)
[2020-01-02] MEDS: NEUTRA-PHOS PACKET 1 EACH PO SCH ×3 (08:24→21:33)
[2020-01-02] MEDS: PANTOPRAZOLE 40 MG/VIAL IVP SCH (08:25)
[2020-01-02] MEDS: CHLORHEXIDINE GLUCONATE 473 ML MOUTHWASH MM SCH ×2 (08:25→21:33)
[2020-01-02] MEDS: ENOXAPARIN SODIUM 100 MG/1 ML SQ SCH (08:26)
[2020-01-02] MEDS: NYSTATIN 15 GM POWDER TP SCH ×2 (08:26→21:33)
[2020-01-02 08:29] LABS: MAGNESIUM 1.7 mg/dL (1.80-2.40)
[2020-01-02 08:34] LABS: POTASSIUM 2.7 mmol/L (3.5-5.1)
--- NOTE | 2020-01-02 10:32 | NUR ---
DYSPHAGIA EVAL COMPLETED. MILD +S/S OF ASPIRATION. RECOMMEND THE CONTINUATION OF SHORT TERM ALTERNATE MEANS OF NUTRITION/HYDRATION AND PLEASURE FEEDINGS OF ICE CHIPS AND SMALL SIPS OF THIN LIQUIDS (WATER) TOLERATED. Pt REFUSED SOLID TRIALS AT THE TIME OF EVALUATION. MVA STILL OPERATOR WILL CONTINUE TO FOLLOW Pt AND RE-EVALUATE WHEN Pt COOPERATES TO ADVANCE TO P.O. SOLID TEXTURES. Addendum: 01/02/20 at 1041 by KAMILAH NICK [facility] Amended: Links added. Addendum: 01/02/20 at 1044 by KAMILAH NICK [facility] MVA STILL OPERATOR COORDINATED CARE WITH NURSE STONE.
[2020-01-02] MEDS: FENTANYL 50 MCG/HR PATCH TD SCH (10:54)
[2020-01-02] MEDS: HYDRALAZINE HCL 20 MG/ML VIAL IV PRN (10:58)
[2020-01-02] MEDS: CLONAZEPAM 0.5 MG TABLET PO SCH (10:59)
[2020-01-02] MEDS ORDERED: CLONAZEPAM 0.5 MG TABLET PO PRN (11:45)
[2020-01-02] MEDS ORDERED: MORPHINE SULFATE 2 MG/ML 1ML SYG IVP PRN (11:45)
[2020-01-02] MEDS: MAGNESIUM 2GM PREMIX 50ML 50 ML IV PRN (12:32)
[2020-01-02] MEDS: POTASSIUM CHLORIDE 20MEQ/100ML 100 ML IV PRN ×2 (12:32→16:28)
--- NOTE | 2020-01-02 16:00 | NUR ---
ROBY FOLLOW UP NOTE Pt s/p extubation. S/p UTILITY WORKER FORGE eval: recommend continue tube feedings with pleasure feedings of ice chips, small sips of water. Noted Gen/RUE 2+/3+ edema. RD to continue to monitor. Please notify as nutrition concerns arise. Thank you. Addendum: 01/02/20 at [address] Amended: Links added.
[2020-01-02] MEDS: APIXABAN 5 MG TABLET PO SCH (21:32)
--- NOTE | 2020-01-02 23:40 | NUR ---
Received patient in 209 regular ICU room,patient on 4L/NC ,awake and following commands.Patient instructed to use call light for assistance and patient demonstrated understanding.Bed exit alarm activated.Will continue to monitor patient.Left upper arm IV site appears red and IV was already removed per RN.
[2020-01-03] VITALS (25 sets, daily range): BP systolic 99–167; BP diastolic 59–93
[2020-01-03] MEDS: GUAIFENESIN-DM 200/20 MG 10 ML PO SCH ×6 (01:53→20:23)
[2020-01-03] MEDS: FUROSEMIDE 10 MG/ML 4ML VIAL IV SCH ×3 (01:53→17:53)
--- NOTE | 2020-01-03 02:30 | NUR ---
Found NGT out,patient stated she does not need it anymore.Patient educated on compliance with medical treatment and verbalized understanding. Call light placed within reach.
[2020-01-03] MEDS: ZOSYN 3.375GM+NS 50ML 50 ML IV SCH ×3 (04:41→20:20)
[2020-01-03 05:53] LABS: HEMATOCRIT 36.8 % (36-48); MEAN CORPUSCULAR HGB CONC 33.2 g/dL (32.0-36.0); MEAN CORPUSCULAR VOLUME 87.4 fL (79-99); PLATELET COUNT (AUTO) 336 K/uL (130-400); RED BLOOD CELL COUNT(AUTO) 4.21 MIL/uL (4.00-5.50); RED CELL DISTRIBUTION WIDTH 13.8 % (11.0-15.5); WHITE BLOOD COUNT (AUTO) 10.3 K/uL (4.8-10.8)
[2020-01-03] MEDS: INSULIN HUMULIN R 100 UNIT/ML 3ML SQ SCH ×5 (06:00→23:29)
[2020-01-03 06:04] LABS: MAGNESIUM 2.3 mg/dL (1.80-2.40)
--- NOTE | 2020-01-03 06:42 | NUR ---
here and saw the patient.NGT out and Dr Quinn notified,patient hemodynamically stable.
--- NOTE | 2020-01-03 06:54 | NUR ---
Patient remained stable, resting comfortable,report given to incoming NOD using SBAR all questions answered.Call light placed within reach and Bed exit alarm on.
[2020-01-03] MEDS: FLUCONAZOLE 200 MG/NS 100 ML 100 ML IV SCH (08:34)
[2020-01-03] MEDS: LINEZOLID 600 MG/ISO-OSM 300 ML IV SCH ×2 (08:35→20:20)
[2020-01-03] MEDS: NYSTATIN 15 GM POWDER TP SCH ×2 (08:35→20:22)
[2020-01-03] MEDS: POTASSIUM CHLORIDE 20MEQ/100ML 100 ML IV PRN (08:36)
[2020-01-03] MEDS: APIXABAN 5 MG TABLET PO SCH ×2 (08:36→20:22)
[2020-01-03] MEDS: NEUTRA-PHOS PACKET 1 EACH PO SCH ×3 (08:36→20:25)
[2020-01-03] MEDS: CHLORHEXIDINE GLUCONATE 473 ML MOUTHWASH MM SCH ×2 (08:37→20:33)
[2020-01-03] MEDS: PANTOPRAZOLE 40 MG/VIAL IVP SCH (08:37)
--- NOTE | 2020-01-03 12:30 | NUR ---
PT IS TALKING WITH FAMILY MEMBERS BY PHONE AND APPEARS TO BE IN BETTER SPIRITS THAN EARLY AM.
--- NOTE | 2020-01-03 13:50 | NUR ---
FOLLOW UP COMPLETED. SLAB INSPECTOR COORDINATED WITH NURSE PAOLA SCHULER. Pt TOLERATING MECHANICAL SOFT DIET WITH THIN LIQUIDS DURING LUNCH WITH NO S/S OF ASPIRATION. RECOMMEND THE CONTINUATION OF MODIFIED DIET OF MECHANICAL SOFT TOLERATED. Addendum: 01/03/[address]ISEL Amended: Links added.
[2020-01-03] MEDS: INSULIN GLARGINE 100 UNITS/ML 10 ML VIAL SQ SCH (21:52)
[2020-01-04] VITALS (15 sets, daily range): BP systolic 118–149; BP diastolic 61–84
[2020-01-04] MEDS: GUAIFENESIN-DM 200/20 MG 10 ML PO SCH ×6 (02:15→21:19)
[2020-01-04] MEDS: FUROSEMIDE 10 MG/ML 4ML VIAL IV SCH ×3 (02:15→21:14)
[2020-01-04] MEDS: ZOSYN 3.375GM+NS 50ML 50 ML IV SCH ×3 (05:19→21:14)
[2020-01-04] MEDS: INSULIN HUMULIN R 100 UNIT/ML 3ML SQ SCH ×3 (06:00→18:00)
[2020-01-04 06:19] LABS: HEMATOCRIT 36.4 % (36-48); MEAN CORPUSCULAR HEMOGLOBIN 29.7 pg (27.0-33.0); MEAN CORPUSCULAR HGB CONC 34.6 g/dL (32.0-36.0); MEAN CORPUSCULAR VOLUME 85.8 fL (79-99); PLATELET COUNT (AUTO) 373 K/uL (130-400); RED BLOOD CELL COUNT(AUTO) 4.24 MIL/uL (4.00-5.50); RED CELL DISTRIBUTION WIDTH 13.2 % (11.0-15.5); WHITE BLOOD COUNT (AUTO) 11.5 K/uL (4.8-10.8)
[2020-01-04 07:09] LABS: POTASSIUM 2.7 mmol/L (3.5-5.1)
[2020-01-04 07:41] LABS: B-TYPE NATRIURETIC PEPTIDE 10 pg/mL (0-100)
--- NOTE | 2020-01-04 07:45 | NUR ---
PT WAS ASSESSED AND PT NOT WANTING BREAKFAST FOR NOW WOULD LIKE TO SLEEP. PO MEDS TAKEN AND PT WAS ALLOWED TO SLEEP.
[2020-01-04] MEDS: LINEZOLID 600 MG/ISO-OSM 300 ML IV SCH ×2 (08:13→21:15)
[2020-01-04] MEDS: FLUCONAZOLE 200 MG/NS 100 ML 100 ML IV SCH (08:13)
[2020-01-04] MEDS: PANTOPRAZOLE 40 MG/VIAL IVP SCH (08:14)
[2020-01-04] MEDS: NEUTRA-PHOS PACKET 1 EACH PO SCH ×3 (08:14→21:17)
[2020-01-04] MEDS: NYSTATIN 15 GM POWDER TP SCH ×2 (08:14→21:17)
[2020-01-04] MEDS: APIXABAN 5 MG TABLET PO SCH ×2 (08:20→21:15)
[2020-01-04] MEDS: CHLORHEXIDINE GLUCONATE 473 ML MOUTHWASH MM SCH ×2 (09:00→21:18)
[2020-01-04] MEDS ORDERED: SODIUM CHLORIDE 0.9% 500ML 500 ML IV ONE (10:18)
[2020-01-04] MEDS: INSULIN GLARGINE 100 UNITS/ML 10 ML VIAL SQ SCH (21:22)
[2020-01-05] VITALS (23 sets, daily range): BP systolic 109–160; BP diastolic 61–83
[2020-01-05] MEDS: INSULIN HUMULIN R 100 UNIT/ML 3ML SQ SCH ×5 (00:38→20:40)
[2020-01-05] MEDS: GUAIFENESIN-DM 200/20 MG 10 ML PO SCH ×6 (01:41→20:29)
[2020-01-05 05:05] LABS: BASOPHILS % (AUTO) 0.7 % (0.0-5.0); EOSINOPHILS % (AUTO) 8.9 % (0.0-8.0); HEMATOCRIT 35.6 % (36-48); MEAN CORPUSCULAR HGB CONC 35.1 g/dL (32.0-36.0); MEAN CORPUSCULAR VOLUME 85.4 fL (79-99); MONOCYTES % (AUTO) 8.4 % (3.0-13.0); NEUTROPHILS % (AUTO) 60.4 % (40.0-77.0); PLATELET COUNT (AUTO) 335 K/uL (130-400); RED BLOOD CELL COUNT(AUTO) 4.17 MIL/uL (4.00-5.50); RED CELL DISTRIBUTION WIDTH 13.2 % (11.0-15.5); WHITE BLOOD COUNT (AUTO) 10.5 K/uL (4.8-10.8)
[2020-01-05 05:18] LABS: ALBUMIN 2.6 g/dL (3.5-5.0); BILIRUBIN,TOTAL 0.5 mg/dL (0.2-1.0); MAGNESIUM 1.9 mg/dL (1.80-2.40)
[2020-01-05] MEDS: ZOSYN 3.375GM+NS 50ML 50 ML IV SCH (05:25)
[2020-01-05 05:35] LABS: B-TYPE NATRIURETIC PEPTIDE 13 pg/mL (0-100)
[2020-01-05] MEDS: POTASSIUM CHLORIDE 10 MEQ/TAB.SA PO PRN (06:38)
[2020-01-05] MEDS ORDERED: POTASSIUM CHLORIDE 20 MEQ ERTAB PO SCH ×2 (07:30→08:30)
[2020-01-05] MEDS: CHLORHEXIDINE GLUCONATE 473 ML MOUTHWASH MM SCH ×2 (09:00→20:41)
[2020-01-05] MEDS: APIXABAN 5 MG TABLET PO SCH ×2 (09:00→20:28)
[2020-01-05] MEDS: NYSTATIN 15 GM POWDER TP SCH ×2 (09:00→20:29)
[2020-01-05] MEDS: NEUTRA-PHOS PACKET 1 EACH PO SCH ×3 (09:00→20:42)
[2020-01-05] MEDS: PANTOPRAZOLE 40 MG/VIAL IVP SCH (09:00)
--- NOTE | 2020-01-05 10:00 | NUR ---
PT HAS BEEN IN GOOD SPIRITS AND TALKING ON THE PHONE WITH FAMILY MEMBERS.
--- NOTE | 2020-01-05 14:20 | NUR ---
PT WAS HANGING HER FEET OFF THE BED AND WANTING TO SIT UP. PT WAS ASSESSED FOR STRENGTH TO HER LEGS AND SHE WAS ABLE TO PUSH HARD AGAINST THE HANDS OF THE NURSING STAFF AND WAS ASSISTED TO SIT UP IN CHAIR. DR. GILES HERE AND REMINDED PT TO BE CAREFUL AND NOT TO FALL DOWN DUE TO HER BEING WEAK. ADVISED PT THAT SHE WOULD BE REPEATING THE COVID 19 TEST AND RESULTS WOULD BE IN BY MONDAY AND MAYBE BY THE END OF WEEK SHE COULD GO HOME. PT WAS VERY HAPPY TO HEAR THAT SHE MAY BE GOING HOME
[2020-01-05] MEDS: ACETAMINOPHEN 325 MG TAB PO PRN (17:14)
--- NOTE | 2020-01-05 20:00 | NUR ---
ASSESSMENT PT RESTING QUIETLY IN CHAIR, TALKING WITH FAMILY VIA PHONE. PT AAOX3, PLEASANT, COOPERATIVE, TALKATIVE. PT ASSISTED BACK TO BED. ASSESSMENT COMPLETED, SEE FLOW SHEET. BED SIDE MONITOR PARAMETERS REVIEWED AND ADJUSTED. WHITE BOARD UP-DATED, CALLBELL WITHIN REACH.
[2020-01-05] MEDS: INSULIN GLARGINE 100 UNITS/ML 10 ML VIAL SQ SCH (20:34)
[2020-01-05] MEDS: ZYVOX 600 MG TAB PO SCH (20:41)
[2020-01-06] VITALS (42 sets, daily range): BP systolic 105–164; BP diastolic 39–85
[2020-01-06] MEDS: GUAIFENESIN-DM 200/20 MG 10 ML PO SCH ×6 (01:23→21:00)
[2020-01-06 04:52] LABS: HEMATOCRIT 35.3 % (36-48); MEAN CORPUSCULAR HEMOGLOBIN 29.4 pg (27.0-33.0); MEAN CORPUSCULAR HGB CONC 34.3 g/dL (32.0-36.0); MEAN CORPUSCULAR VOLUME 85.9 fL (79-99); PLATELET COUNT (AUTO) 342 K/uL (130-400); RED BLOOD CELL COUNT(AUTO) 4.11 MIL/uL (4.00-5.50); RED CELL DISTRIBUTION WIDTH 13.3 % (11.0-15.5); WHITE BLOOD COUNT (AUTO) 10.2 K/uL (4.8-10.8)
[2020-01-06 05:26] LABS: POTASSIUM 3.6 mmol/L (3.5-5.1)
[2020-01-06] MEDS: INSULIN HUMULIN R 100 UNIT/ML 3ML SQ SCH ×4 (05:41→20:59)
[2020-01-06] MEDS: CHLORHEXIDINE GLUCONATE 473 ML MOUTHWASH MM SCH (07:58)
[2020-01-06] MEDS: FLUCONAZOLE 100 MG TAB PO SCH (08:00)
[2020-01-06] MEDS: PANTOPRAZOLE SODIUM 40 MG TABLET.DR PO SCH (08:00)
[2020-01-06] MEDS: APIXABAN 5 MG TABLET PO SCH ×2 (08:00→21:01)
--- NOTE | 2020-01-06 08:15 | NUR ---
OBTAINED NASAL SWAB FOR COVID-19, ORDERED PER MD
[2020-01-06] MEDS: NYSTATIN 15 GM POWDER TP SCH ×2 (08:29→21:41)
[2020-01-06] MEDS: LEVOFLOXACIN 750 MG TABLET PO SCH (08:51)
[2020-01-06] MEDS: ZYVOX 600 MG TAB PO SCH ×2 (08:51→21:00)
[2020-01-06] MEDS: NEUTRA-PHOS PACKET 1 EACH PO SCH ×3 (08:54→21:00)
[2020-01-06] MEDS: POTASSIUM CHLORIDE 10% ELIXIR 20 MEQ/15 ML UDCUP PO PRN ×2 (10:02→11:32)
--- NOTE | 2020-01-06 16:24 | NUR ---
RD Follow up Pt tolerating Current diet order with no report of GI distress, Good PO intake (100%). Tube feeding discontinued. LBM 01/05/20. RD to continue to monitor. Please notify as additional nutrition concerns arises. Thank you. Addendum: 01/06/20 at [address] Amended: Links added.
[2020-01-06] MEDS: INSULIN GLARGINE 100 UNITS/ML 10 ML VIAL SQ SCH ×2 (21:00→21:03)
[2020-01-07] VITALS (28 sets, daily range): BP systolic 121–161; BP diastolic 55–103
[2020-01-07] MEDS: GUAIFENESIN-DM 200/20 MG 10 ML PO SCH ×6 (01:48→21:12)
[2020-01-07 05:09] LABS: HEMATOCRIT 34.4 % (36-48); MEAN CORPUSCULAR HEMOGLOBIN 29.8 pg (27.0-33.0); MEAN CORPUSCULAR HGB CONC 34.6 g/dL (32.0-36.0); MEAN CORPUSCULAR VOLUME 86.2 fL (79-99); PLATELET COUNT (AUTO) 322 K/uL (130-400); RED BLOOD CELL COUNT(AUTO) 3.99 MIL/uL (4.00-5.50); RED CELL DISTRIBUTION WIDTH 13.5 % (11.0-15.5)
[2020-01-07 05:36] LABS: ALBUMIN 2.6 g/dL (3.5-5.0); BILIRUBIN,TOTAL 0.6 mg/dL (0.2-1.0); CRP QUANTITATIVE 10.9 mg/L (0.00-9.0); MAGNESIUM 2.2 mg/dL (1.80-2.40); PHOSPHORUS 3.3 mg/dL (2.5-4.9); POTASSIUM 3.8 mmol/L (3.5-5.1); TOTAL PROTEIN, SERUM 6.8 g/dL (6.0-8.3)
[2020-01-07] MEDS: INSULIN HUMULIN R 100 UNIT/ML 3ML SQ SCH ×4 (06:00→21:17)
[2020-01-07] MEDS: INSULIN GLARGINE 100 UNITS/ML 10 ML VIAL SQ SCH ×2 (07:55→21:18)
[2020-01-07] MEDS: APIXABAN 5 MG TABLET PO SCH ×2 (07:59→21:11)
[2020-01-07] MEDS: LEVOFLOXACIN 750 MG TABLET PO SCH (08:00)
[2020-01-07] MEDS: ZYVOX 600 MG TAB PO SCH ×2 (08:00→21:12)
[2020-01-07] MEDS: PANTOPRAZOLE SODIUM 40 MG TABLET.DR PO SCH (08:00)
[2020-01-07] MEDS: FLUCONAZOLE 100 MG TAB PO SCH (08:00)
[2020-01-07] MEDS: NEUTRA-PHOS PACKET 1 EACH PO SCH ×3 (08:00→21:12)
[2020-01-07] MEDS: NYSTATIN 15 GM POWDER TP SCH ×2 (08:02→21:14)
[2020-01-07] MEDS: POTASSIUM CHLORIDE 10% ELIXIR 20 MEQ/15 ML UDCUP PO PRN (09:36)
--- NOTE | 2020-01-07 10:15 | NUR ---
TETE GARDINER PRESENT AT NURSES STATION, NEW ORDERS GIVEN TO CHANGE STATUS TO PCCU, CHARGE NURSE MELISA RAMIREZ RN MADE AWARE
[2020-01-08] VITALS (8 sets, daily range): BP systolic 131–166; BP diastolic 65–89
[2020-01-08] MEDS: GUAIFENESIN-DM 200/20 MG 10 ML PO SCH ×6 (02:23→21:46)
[2020-01-08 05:32] LABS: HEMATOCRIT 34.8 % (36-48); MEAN CORPUSCULAR HEMOGLOBIN 29.5 pg (27.0-33.0); MEAN CORPUSCULAR HGB CONC 34.2 g/dL (32.0-36.0); MEAN CORPUSCULAR VOLUME 86.1 fL (79-99); PLATELET COUNT (AUTO) 331 K/uL (130-400); RED BLOOD CELL COUNT(AUTO) 4.04 MIL/uL (4.00-5.50); RED CELL DISTRIBUTION WIDTH 13.4 % (11.0-15.5); WHITE BLOOD COUNT (AUTO) 7.6 K/uL (4.8-10.8)
[2020-01-08 05:34] LABS: POTASSIUM 3.9 mmol/L (3.5-5.1)
[2020-01-08] MEDS: INSULIN HUMULIN R 100 UNIT/ML 3ML SQ SCH ×4 (06:33→20:47)
[2020-01-08] MEDS: INSULIN GLARGINE 100 UNITS/ML 10 ML VIAL SQ SCH ×2 (07:09→20:56)
[2020-01-08] MEDS: FLUCONAZOLE 100 MG TAB PO SCH (09:22)
[2020-01-08] MEDS: PANTOPRAZOLE SODIUM 40 MG TABLET.DR PO SCH (09:22)
[2020-01-08] MEDS: LEVOFLOXACIN 750 MG TABLET PO SCH (09:22)
[2020-01-08] MEDS: NEUTRA-PHOS PACKET 1 EACH PO SCH ×3 (09:23→19:38)
[2020-01-08] MEDS: NYSTATIN 15 GM POWDER TP SCH ×2 (09:23→19:38)
[2020-01-08] MEDS: ZYVOX 600 MG TAB PO SCH ×2 (09:23→19:39)
[2020-01-08] MEDS: APIXABAN 5 MG TABLET PO SCH ×2 (09:23→19:39)
--- NOTE | 2020-01-08 14:41 | NUR ---
LUIS YOU GAVE 02 FORMS TO NOHEMI MIDDLETON MD TO COTY. ALREADY ROUNDED TODAY. Addendum: 01/08/20 at 1442 by SHAWNA TRIVEDI RN CM Amended: Links added.
--- NOTE | 2020-01-08 21:00 | NUR ---
PT REFUSED LANTUS, STATES IS MAKES HER BS DROP. PT LEVEL IS 167.
[2020-01-09] VITALS: BP 132/69
[2020-01-09] MEDS: GUAIFENESIN-DM 200/20 MG 10 ML PO SCH ×6 (01:55→20:32)
[2020-01-09 04:00] VITALS: BP 150/70
--- NOTE | 2020-01-09 06:06 | NUR ---
PT TRANSFERRED TO 224.
[2020-01-09] MEDS: INSULIN GLARGINE 100 UNITS/ML 10 ML VIAL SQ SCH ×2 (06:07→21:00)
[2020-01-09] MEDS: INSULIN HUMULIN R 100 UNIT/ML 3ML SQ SCH ×4 (06:07→21:00)
[2020-01-09 08:07] VITALS: BP 139/75
[2020-01-09] MEDS: APIXABAN 5 MG TABLET PO SCH (08:45)
[2020-01-09] MEDS: ZYVOX 600 MG TAB PO SCH ×2 (08:45→20:32)
[2020-01-09] MEDS: PANTOPRAZOLE SODIUM 40 MG TABLET.DR PO SCH (08:45)
[2020-01-09] MEDS: FLUCONAZOLE 100 MG TAB PO SCH (08:46)
[2020-01-09] MEDS: LEVOFLOXACIN 750 MG TABLET PO SCH (08:46)
[2020-01-09] MEDS: NEUTRA-PHOS PACKET 1 EACH PO SCH ×3 (09:00→20:32)
[2020-01-09] MEDS: NYSTATIN 15 GM POWDER TP SCH ×2 (10:55→20:33)
[2020-01-09 12:02] LABS: ABG BASE EXCESS 0.9 mmol/L (-2.0-3.0); ABG OXYGEN SATURATION 93.3 % (95.0-99.0); ABG PCO2 34 mmHg (32-45)
[2020-01-09 12:11] VITALS: BP 137/73
[2020-01-09 16:27] VITALS: BP 130/67
[2020-01-09 19:56] VITALS: BP 134/71
[2020-01-10 00:03] VITALS: BP 149/80
[2020-01-10] MEDS: GUAIFENESIN-DM 200/20 MG 10 ML PO SCH ×5 (01:45→17:45)
--- NOTE | 2020-01-10 02:00 | NUR ---
PT HAS SHOWN SOME IMPROVEMENT. DOES CONTINUE ON OXYGEN SINCE PT HAD DIFFICULTY WITHOUT OXYGEN WHEN TRANSFERRING TO CHAIR. BECAME VERY SOB. ABG SHOWS MINIMAL IMPROVEMENT. WILL NEED HOME O2. POSSIBLE DC.
[2020-01-10 04:31] VITALS: BP 130/76
[2020-01-10 06:08] LABS: HEMATOCRIT 34.6 % (36-48); MEAN CORPUSCULAR HEMOGLOBIN 29.4 pg (27.0-33.0); MEAN CORPUSCULAR HGB CONC 34.1 g/dL (32.0-36.0); MEAN CORPUSCULAR VOLUME 86.3 fL (79-99); PLATELET COUNT (AUTO) 317 K/uL (130-400); RED BLOOD CELL COUNT(AUTO) 4.01 MIL/uL (4.00-5.50); RED CELL DISTRIBUTION WIDTH 13.7 % (11.0-15.5); WHITE BLOOD COUNT (AUTO) 6.6 K/uL (4.8-10.8)
[2020-01-10] MEDS: INSULIN HUMULIN R 100 UNIT/ML 3ML SQ SCH ×3 (06:15→16:30)
[2020-01-10 06:29] LABS: CREATININE 0.9 mg/dL (0.5-1.5); POTASSIUM 3.5 mmol/L (3.5-5.1)
[2020-01-10] MEDS: INSULIN GLARGINE 100 UNITS/ML 10 ML VIAL SQ SCH (06:40)
[2020-01-10 06:48] LABS: BASOPHILS % (MANUAL) 2 % (0-2); EOSINOPHILS % (MANUAL) 3 % (1-6); LYMPHOCYTES % (MANUAL) 31 % (22-44); MAN.DIFF COMMENT-IMPRESSION MANUAL DIFFERENTIAL; MONOCYTES % (MANUAL) 11 % (2-9); PLATELET MORPHOLOGY COMMENT ADEQUATE; REACTIVE LYMPHOCYTES 6 % (0-0); SEGMENTED NEUTROPHILS % 47 % (40-70)
[2020-01-10 08:27] VITALS: BP 136/76
[2020-01-10] MEDS ORDERED: APIXABAN 5 MG TABLET PO SCH (09:00)
--- NOTE | 2020-01-10 09:00 | NUR ---
SITTING UP IN BED. AAOX3, RESP.'S EVEN AND UNLABORED. DENIES ANY SOB, DENIES ANY CURRENT PAIN. O2 AT 2L/NC. DENIES ANY C/O N/V. F/C IN PLACE, YELLOW URINE NOTED. PT. IN TOTAL CARE SP(O2)RT BED. CALL LIGHT WITHIN REACH, VERBALIZED ABILITY TO USE.
[2020-01-10] MEDS: ZYVOX 600 MG TAB PO SCH (09:43)
[2020-01-10] MEDS: LEVOFLOXACIN 750 MG TABLET PO SCH (09:43)
[2020-01-10] MEDS: FLUCONAZOLE 100 MG TAB PO SCH (09:43)
[2020-01-10] MEDS: PANTOPRAZOLE SODIUM 40 MG TABLET.DR PO SCH (09:43)
[2020-01-10] MEDS: NYSTATIN 15 GM POWDER TP SCH (09:45)
[2020-01-10] MEDS: NEUTRA-PHOS PACKET 1 EACH PO SCH ×2 (09:50→16:36)
--- NOTE | 2020-01-10 10:41 | NUR ---
DC PLAN 02 INFO FAXED TO [facility]. D[facility]. [place] [facility]IT[facility]. [facility]ICK RESGEOFF DID NOT RECEIVE. [facility] MONIT[facility] WAS WORKING ON IT BUT THEN RAN OUT OF CONCENTRATORS CAN NOT COMPLETE AT THIS TIME. SPOKE TO JANELL WITH [facility]. [phone]. GAVE HIM ROBERT POWELL FOR TIFFANY. Addendum: 01/10/20 at 1045 by SHAWNA TRIVEDI RN CM Amended: Links added.
[2020-01-10 12:29] VITALS: BP 129/72
--- NOTE | 2020-01-10 12:39 | NUR ---
TETE GARDINER, IN ROOM SPEAKING WITH PT. RE:PLAN OF CARE AND DISCHARGE DISPOSITION.
--- NOTE | 2020-01-10 13:20 | NUR ---
F/C REMOVED BY Jaspreet RAMIREZ RN. PT. TOLERATED W/O C/O. DTV.
--- NOTE | 2020-01-10 15:53 | NUR ---
[facility] CALLED SAID THEY WILL ACCEPTED PATIENT. TRYING TO REACH SPOUSE TO DELIVER EQUIPMENT. PATIENT WILL HAVE A COPAY OF 20 DOLLARS AND CHANGE. CALLED AROUND FOR HOME HEALTH IN CASE PATIENT NEEDED. PER HOME [facility]ALTH[facility] THEY ARE STILL WAITING ON [facility] TO SAY IF THEY CAN TREAT COVID + PATIENTS. THEY HAVE BEEN HAVING MEETING BUT NO WORD YET. I DID LET NURSE KNOW THAT LAST TIME WE SET UP HOME HEALTH FOR TIFFANY PATIENT NEEDED TO HAVE ALREADY PAID THEIR DEDUCTIBLE WHICH IS FROM 500 TO 1500 DEPENDING ON WHICH DEDUCTIBLE WAS CHOOSEN. LAST TIME IT WAS FOR 1000. THAT HAD TO BE PAID UPFRONT. ASKED NURSE TO TALK TO PATIENT AND SEE IF ALREADY MET DEDUCTIBLE AND IF WANTS HOME HEALTH SET UP. PATIENT SAID NO HOME HEALTH. Addendum: 01/10/20 at 1558 by SHAWNA TRIVEDI RN CM Amended: Links added.
[2020-01-10 16:00] VITALS: BP 136/97
[2020-01-10] MEDS: POTASSIUM CHLORIDE 10 MEQ/TAB.SA PO PRN (16:32)
--- NOTE | 2020-01-10 17:20 | NUR ---
PRESCRIPTIONS CALLED IN TO [facility] PER PT.'S REQUEST.
--- NOTE | 2020-01-10 17:40 | NUR ---
HL REMOVED, CATHETER INTACT. DISCHARGE INSTRUCTIONS GIVEN, VERBALIZED UNDERSTANDING.
--- NOTE | 2020-01-10 17:52 | NUR ---
DISCHARGED HOME VIA W/C WITH BELONGINGS AND HOME O2 IN PLACE, ACCOMPANIED BY John RAMIREZ RN.
== END 2020-01-10 18:00 | disposition home or self-care (01) | DRG 870 ==
LOC: EDH 06:05 → EDHIP 07:50 → 2CH 11:09 → 2BH 01-02 23:23 → 2DH 01-09 05:34
PROVIDERS: ADMIT Family Medicine; ATTEND Family Medicine
PROC: 5A1955Z Respiratory Ventilation, Greater than 96 Consecutive Hours (ICD-10-PCS; principal; 2019-12-17)
PROC: 0BH17EZ Insertion of Endotracheal Airway into Trachea, Via Natural or Artificial Opening (ICD-10-PCS; 2019-12-17)
DX: A41.9 Sepsis, unspecified organism (principal); U07.1 COVID-19; J96.01 Acute respiratory failure with hypoxia; R65.21 Severe sepsis with septic shock; J12.89 Other viral pneumonia; J45.21 Mild intermittent asthma with (acute) exacerbation; E87.3 Alkalosis; I82.A11 Acute embolism and thrombosis of right axillary vein; B37.9 Candidiasis, unspecified; E03.9 Hypothyroidism, unspecified; E11.649 Type 2 diabetes mellitus with hypoglycemia without coma; E11.65 Type 2 diabetes mellitus with hyperglycemia; E66.01 Morbid (severe) obesity due to excess calories; E78.5 Hyperlipidemia, unspecified; E83.51 Hypocalcemia; E87.6 Hypokalemia; E87.70 Fluid overload, unspecified; I10 Essential (primary) hypertension; M06.9 Rheumatoid arthritis, unspecified; L89.159 Pressure ulcer of sacral region, unspecified stage; Z68.37 Body mass index [BMI] 37.0-37.9, adult; Z74.01 Bed confinement status; Z78.9 Other specified health status; Z79.01 Long term (current) use of anticoagulants; Z79.4 Long term (current) use of insulin; Z79.899 Other long term (current) drug therapy; Z99.81 Dependence on supplemental oxygen; Z91.19 Patient's noncompliance with other medical treatment and regimen; Z90.710 Acquired absence of both cervix and uterus; Z88.5 Allergy status to narcotic agent; Z86.718 Personal history of other venous thrombosis and embolism; Z83.3 Family history of diabetes mellitus; Z82.49 Family history of ischemic heart disease and other diseases of the circulatory system
CPT/HCPCS: 31500; 36415; 36600; 71045; 71046; 71250; 80048; 80053; 80202; 82435; 82728; 82803; 82947; 82948; 83605; 83615; 83735; 83880; 84100; 84132; 84145; 84295; 85018; 85025; 85027; 85378; 85610; 85730; 86140; 87040; 87071; 87088; 87205; 87486; 87581; 87633; 87635; 87798; 87804; 92610; 93005; 93306; 93356; 93970; 94002; 94003; 94760; A4344; A4606; A6250; C9113; G0378; J0360; J0456; J0610; J1200; J1450; J1650; J1815; J1940; J2020; J2185; J2250; J2405; J2543; J2704; J2920; J3010; J3370; J3475; J3480; J3486; J3490; J7030; J7040; J7060; J7120

== ENCOUNTER → 2020-07-22 | Outpatient (CLI) | payer OTHER ==
[~2020-07-22] MED LIST changes: -LISI1TAB28 PO; +LISI1TAB51 PO; +ONDA4TAB4 PO; -TRAM50TA4 PO
[2020-07-22 13:36] LABS: ALBUMIN 3.7 g/dL (3.5-5.0); BILIRUBIN,TOTAL 1.1 mg/dL (0.2-1.0); CREATININE 0.8 mg/dL (0.5-1.5); POTASSIUM 3.9 mmol/L (3.5-5.1); THYROID STIMULATING HORMONE 1.85 uIU/mL (0.36-3.74); TOTAL PROTEIN, SERUM 7.1 g/dL (6.0-8.3)
== END | disposition home or self-care (01) ==
LOC: LAB 11:34
PROVIDERS: ATTEND Family Medicine
DX: I12.9 Hypertensive chronic kidney disease with stage 1 through stage 4 chronic kidney disease, or unspecified chronic kidney disease (principal); E11.22 Type 2 diabetes mellitus with diabetic chronic kidney disease; E11.65 Type 2 diabetes mellitus with hyperglycemia; N18.9 Chronic kidney disease, unspecified
CPT/HCPCS: 36415; 80053; 80061; 82306; 84439; 84443; 84481

== ENCOUNTER → 2020-12-02 | Outpatient (CLI) | payer OTHER ==
[2020-12-02 10:06] LABS: ALBUMIN 3.9 g/dL (3.5-5.0); BILIRUBIN,TOTAL 0.7 mg/dL (0.2-1.0); CREATININE 0.9 mg/dL (0.5-1.5); T4 (THYROXINE) 10.2 ug/dL (4.7-13.3); THYROID STIMULATING HORMONE 2.86 uIU/mL (0.36-3.74); TOTAL PROTEIN, SERUM 7.4 g/dL (6.0-8.3)
== END | disposition home or self-care (01) ==
LOC: LAB 08:34
PROVIDERS: ATTEND Family Medicine
DX: E11.65 Type 2 diabetes mellitus with hyperglycemia (principal); I10 Essential (primary) hypertension
CPT/HCPCS: 36415; 80053; 80061; 82306; 84436; 84443; 84479; 84481

== ENCOUNTER → 2020-12-11 | Outpatient (CLI) | payer OTHER ==
[2020-12-11 11:48] LABS: EOSINOPHILS % (AUTO) 2.5 % (0.0-8.0); HEMATOCRIT 43.2 % (36-48); LYMPHOCYTES % (AUTO) 35.1 % (21.0-51.0); MEAN CORPUSCULAR HGB CONC 35.6 g/dL (32.0-36.0); MEAN CORPUSCULAR VOLUME 84.2 fL (79-99); MONOCYTES % (AUTO) 6.7 % (3.0-13.0); NEUTROPHILS % (AUTO) 54.4 % (40.0-77.0); PLATELET COUNT (AUTO) 285 K/uL (130-400); RED BLOOD CELL COUNT(AUTO) 5.13 MIL/uL (4.00-5.50); RED CELL DISTRIBUTION WIDTH 12.5 % (11.0-15.5); WHITE BLOOD COUNT (AUTO) 7.9 K/uL (4.8-10.8)
[2020-12-11 12:04] LABS: ALBUMIN 3.8 g/dL (3.5-5.0); BILIRUBIN,TOTAL 0.9 mg/dL (0.2-1.0); CREATININE 0.8 mg/dL (0.5-1.5); TOTAL PROTEIN, SERUM 7.3 g/dL (6.0-8.3)
== END | disposition home or self-care (01) ==
LOC: LAB 11:10
PROVIDERS: ATTEND Family Medicine
DX: E11.65 Type 2 diabetes mellitus with hyperglycemia (principal)
CPT/HCPCS: 36415; 80053; 85025